=== PATIENT | female | born 1930 | race Caucasian/White ===

== ENCOUNTER 2016-05-02 16:55 | Emergency (ER) | payer OTHER ==
[~2016-05-02] VITALS: Ht 154.9 cm; Wt 63.0 kg
[~2016-05-02 16:55] MED LIST: BRIM0.2S4 LEFT EYE; BUME0.5T PO; CIPR-9 PO; DIGO0.12 PO; DILT300C PO; DORZ2SOL7 LEFT EYE; LOSA25TA PO; POTA10TA8 PO; PRED1SUS LEFT EYE; PROB500T8 PO; XARE20TA PO
[2016-05-02 17:10] VITALS: BP 152/60; PULSE 71; RESP 18; TEMP 98.3; O2SAT 98
--- NOTE | 2016-05-02 17:35 | PD ---
HPI Chief Complaint: Abdominal Pain Time Seen by Provider: 17:22 Travel History International Travel<30 days: No Contact w/Intl Traveler<30days: No Traveled to known affect area: No History of Present Illness HPI The patient was seen and examined in the presence of the nurse. This patient has intermittent spells of abdominal cramping for one month. She is currently pain-free. No vomiting or rigidity does have alternating spells of diarrhea and constipation. No bleeding. She was seen here week ago for the exact same problem and had extensive workup that was negative. She does have a GI physician she sees regularly but didn't mention this to them. Symptoms severity is mild to moderate PFSH Past Medical History Hx Anticoagulant Therapy: Yes Asthma: Yes ( CHILD) Atrial Fibrillation: Yes Heart Rhythm Problems: Yes (A. FIB) Cancer: No Cardiovascular Problems: Yes (AFIB) High Cholesterol: Yes Congestive Heart Failure: No COPD: No Diminished Hearing: No Diverticulitis: Yes Endocrine: No Gastrointestinal Disorders: Yes (HX PANCREATITIS 1989) Genitourinary: Yes (BLADDER INFECTION, UTIs) Hypertension: Yes Implanted Vascular Access Dvce: Yes Neurologic: No Psychiatric: No Respiratory: Yes Immunizations Current: No Pancreatitis: Yes ?: Not Menopausal: Yes : 3 Para: 2 Miscarriage: 1 Past Surgical History Abdominal Surgery: Yes (DIVERTICULITIS; CHOLECYSTECTOMY) Body Medical Devices: knee replacement bilateral Cholecystectomy: Yes Genitourinary Surgery: Yes (FLOYD [facility] ) Gynecologic Surgery: Yes ([facility]) Hysterectomy: Yes Joint Replacement: Yes (bilat KNEE) Tonsillectomy: Yes Other Surgery: Yes (LEFT LOWER LEG SKIN GRAFT 2015) Social History Alcohol Use: No Tobacco Use: No Substance Use: No Allergies-Medications (Allergen,Severity, Reaction): Coded Allergies: Acarides (Mites) (Verified Allergy, Severe, 05/02/16) Beef (Verified Allergy, Severe, 05/02/16) Cultivated Oat Pollen (Verified Allergy, Severe, 05/02/16) Grass (Verified Allergy, Severe, 05/02/16) Milk (Verified Allergy, Severe, Sneezing, 05/02/16) Molds and Smuts (Verified Allergy, Severe, 05/02/16) Morphine (Verified Allergy, Severe, CAN NOT TAKE HX PANCREATITIS, 05/02/16) Reported Meds & Prescriptions Reported Meds & Active Scripts Active Cipro (Ciprofloxacin HCl) 500 Mg Tab 500 Mg PO BID 7 Days Reported Xarelto (Rivaroxaban) 20 Mg Tab 20 Mg PO DAILY Probenecid 500 Mg Tab 500 Mg PO DAILY Pred Forte Opth Drops (Prednisolone Acetate Opth Drops) 1% Susp 1 Drop LEFT EYE DAILY Potassium Chloride CR (Potassium Chloride) 10 Meq Tab 10 Meq PO DAILY Losartan (Losartan Potassium) 25 Mg Tab 25 Mg PO DAILY Diltiazem HCl ER (Diltiazem HCl Coated Beads) 300 Mg Cap 300 Mg PO DAILY Digoxin 0.125 Mg Tab 0.125 Mg PO HS Cosopt Opth Drops (Dorzolamide-Timolol Opth Drops) 22.3-6.8 Mg/Ml Soln 1 Drop LEFT EYE BID Bumetanide 0.5 Mg Tab 0.5 Mg PO DAILY Brimonidine Opth Drops (Brimonidine Tartrate) 0.2% Soln 1 Drop LEFT EYE BID Review of Systems General / Constitutional: No: Fever Eyes: No: Visual changes HENT: No: Headaches Cardiovascular: No: Chest Pain or Discomfort Respiratory: No: Shortness of Breath Gastrointestinal: Positive: Diarrhea, Abdominal Pain, Constipation Genitourinary: No: Dysuria Musculoskeletal: No: Pain Skin: No Rash Neurologic: No: Weakness Psychiatric: No: Depression Endocrine: No: Polydipsia Hematologic/Lymphatic: No: Easy Bruising Physical Exam Narrative GENERAL: Well-nourished, well-developed patient in no apparent distress. SKIN: Warm and dry. HEAD: Atraumatic. Normocephalic. EYES: Pupils equal and round. No scleral icterus. No injection or drainage. ENT: No nasal bleeding or discharge. Mucous membranes pink and moist. NECK: Trachea midline. No JVD. CARDIOVASCULAR: Regular rate and rhythm. No murmur appreciated. RESPIRATORY: No accessory muscle use. Clear to auscultation. Breath sounds equal bilaterally. GASTROINTESTINAL: Abdomen soft, non-tender, nondistended. Hepatic and splenic margins not palpable. MUSCULOSKELETAL: No obvious deformities. No clubbing. No cyanosis. No edema. NEUROLOGICAL: Awake and alert. No obvious cranial nerve deficits. Motor grossly within normal limits. Normal speech. PSYCHIATRIC: Appropriate mood and affect; insight and judgment normal. Data Data Last Documented VS Vital Signs Date Time Temp Pulse Resp B/P Pulse Ox O2 Delivery O2 Flow Rate FiO2 05/02/16 17:10 98.3 71 18 152/60 98 MDM Medical Decision Making Medical Screen Exam Complete: Yes Emergency Medical Condition: Yes Medical Record Reviewed: Yes Differential Diagnosis Irritable bowel syndrome, gastroparesis, colitis Narrative Course I have reviewed the patient's electronic medical record. Reviewed the CT and labs from a week ago Since workup was negative other than UTI which she completed antibiotic for and has no urinary symptoms I don't feel repeating that extensive workup is going to help the process here today. She is currently asymptomatic with soft benign nontender abdomen Recommend she follow up with her GI physician Diagnosis Primary Impression: Abdominal pain Qualified Code: R10.30 - Lower abdominal pain Additional Instructions: The patient was advised to follow up with their GI physician and return if they worsen. Med/Other Pt SpecificInfo: Other Disposition: 01 DISCHARGE HOME Condition: Stable Bahman Weston MD May 02, 2016 17:35
== END 2016-05-02 17:55 | disposition home or self-care (01) ==
LOC: PHED 16:55
DX: R10.9 Unspecified abdominal pain (principal); I48.91 Unspecified atrial fibrillation; E78.00 Pure hypercholesterolemia, unspecified; I10 Essential (primary) hypertension; Z79.01 Long term (current) use of anticoagulants
CPT/HCPCS: 99283

== ENCOUNTER 2016-07-21 16:14 | Emergency (ER) | payer OTHER ==
[~2016-07-21] VITALS: Ht 154.9 cm; Wt 60.6 kg
[~2016-07-21 16:14] MED LIST changes: -CIPR-9 PO
[2016-07-21 16:32] VITALS: BP 163/93; PULSE 83; RESP 18; TEMP 98.8; O2SAT 98
[2016-07-21 16:34] LABS: BLOOD, URINE TRACE (NEG); GLUCOSE,URINE NEG (NEG); KETONE, URINE NEG (NEG); NITRITE,URINE NEG (NEG); PH, URINE 5.5 (5.0-8.5)
[2016-07-21 16:55] LABS: METHOD OF COLLECTION CLEAN CATCH; URINE COLOR STRAW (YELLW/STRAW); WBC, URINE 100-200 /hpf (0-5)
[2016-07-21 16:56] LABS: COMMENT (UR) CULTURE INDICATED; CULTURE IF INDICATED CULTURE INDICATED; SQUAMOUS EPITHELIAL CELL URINE 0-5 /hpf (0-5); TRANSITIONAL EPI CELLS, URINE 0-5 /hpf
--- NOTE | 2016-07-21 17:39 | PD ---
HPI Chief Complaint: Abdominal Pain Time Seen by Provider: 17:39 (Sophia Morin) Time Seen by Provider: 17:39 (Julio Ro MD) Travel History International Travel<30 days: No Contact w/Intl Traveler<30days: No Traveled to known affect area: No (Sophia Morin) International Travel<30 days: No Contact w/Intl Traveler<30days: No Traveled to known affect area: No (Julio Ro MD) History of Present Illness HPI This 86-year-old female says she been having lower abdominal pain for the past week. She is gone to her doctor and was given a course of sulfa. This did not seem to help so then he was changed to doxycycline. This is also not helping. She is having pain across her lower abdomen. She's had diminished appetite area she has a history of frequent urinary tract infections. She also had perforated diverticulitis of the sigmoid in 1971 and had surgery for that. She is also a cholecystectomy, hysterectomy, cystocele and rectocele. (Julio Ro MD) [facility] Past Medical History Hx Anticoagulant Therapy: Yes Asthma: Yes ( CHILD) Atrial Fibrillation: Yes Heart Rhythm Problems: Yes (A. FIB) Cancer: No Cardiovascular Problems: Yes (AFIB) High Cholesterol: Yes Congestive Heart Failure: No COPD: No Diminished Hearing: No Diverticulitis: Yes Endocrine: No Gastrointestinal Disorders: Yes (HX PANCREATITIS 1989) Genitourinary: Yes (BLADDER INFECTION, UTIs) Hypertension: Yes Implanted Vascular Access Dvce: Yes Neurologic: No Psychiatric: No Respiratory: Yes Immunizations Current: No Pancreatitis: Yes Influenza Vaccination: Yes ?: Not Menopausal: Yes : 3 Para: 2 Miscarriage: 1 (Sophia Morin) Past Surgical History Abdominal Surgery: Yes (DIVERTICULITIS; CHOLECYSTECTOMY) Body Medical Devices: knee replacement bilateral Cholecystectomy: Yes Genitourinary Surgery: Yes (FLOYD [facility] ) Gynecologic Surgery: Yes ([facility]) Hysterectomy: Yes Joint Replacement: Yes (bilat KNEE) Tonsillectomy: Yes Other Surgery: Yes (LEFT LOWER LEG SKIN GRAFT 2015) (Sophia Morin) Social History Alcohol Use: No Tobacco Use: No Substance Use: No (Sophia Morin) Allergies-Medications (Allergen,Severity, Reaction): Coded Allergies: Acarides (Mites) (Verified Allergy, Severe, 05/02/16) Beef (Verified Allergy, Severe, 05/02/16) Cultivated Oat Pollen (Verified Allergy, Severe, 05/02/16) Grass (Verified Allergy, Severe, 05/02/16) Milk (Verified Allergy, Severe, Sneezing, 05/02/16) Molds and Smuts (Verified Allergy, Severe, 05/02/16) Morphine (Verified Allergy, Severe, CAN NOT TAKE HX PANCREATITIS, 05/02/16) Reported Meds & Prescriptions Reported Meds & Active Scripts Active Macrobid (Nitrofurantoin Monoh/Nitrofur Macro) 100 Mg Cap 100 Mg PO BID Reported Xarelto (Rivaroxaban) 20 Mg Tab 20 Mg PO DAILY Probenecid 500 Mg Tab 500 Mg PO DAILY Pred Forte Opth Drops (Prednisolone Acetate Opth Drops) 1% Susp 1 Drop LEFT EYE DAILY Potassium Chloride CR (Potassium Chloride) 10 Meq Tab 10 Meq PO DAILY Losartan (Losartan Potassium) 25 Mg Tab 25 Mg PO DAILY Diltiazem HCl ER (Diltiazem HCl Coated Beads) 300 Mg Cap 300 Mg PO DAILY Digoxin 0.125 Mg Tab 0.125 Mg PO HS Cosopt Opth Drops (Dorzolamide-Timolol Opth Drops) 22.3-6.8 Mg/Ml Soln 1 Drop LEFT EYE BID Bumetanide 0.5 Mg Tab 0.5 Mg PO DAILY Brimonidine Opth Drops (Brimonidine Tartrate) 0.2% Soln 1 Drop LEFT EYE BID (Julio Ro MD) Review of Systems General / Constitutional: No: Fever, Chills Eyes: No: Diploplia, Blurred Vision HENT: No: Headaches, Vertigo Cardiovascular: No: Chest Pain or Discomfort, Palpitations Respiratory: No: Cough, Shortness of Breath Gastrointestinal: No: Vomiting, Diarrhea Genitourinary: Positive: Pelvic Pain Musculoskeletal: No: Myalgias Skin: No Rash (Julio Ro MD) Physical Exam Narrative GENERAL: Well-developed female SKIN: Focused skin assessment warm/dry. HEAD: Atraumatic. Normocephalic. EYES: Pupils equal and round. No scleral icterus. No injection or drainage. ENT: No nasal bleeding or discharge. Mucous membranes pink and moist. NECK: Trachea midline. No JVD. CARDIOVASCULAR: Irregular rate and rhythm. No murmur appreciated. RESPIRATORY: No accessory muscle use. Clear to auscultation. Breath sounds equal bilaterally. GASTROINTESTINAL: Abdomen soft, there is some lower abdominal tenderness without guarding or rigidity, nondistended. Hepatic and splenic margins not palpable. MUSCULOSKELETAL: No obvious deformities. No clubbing. No cyanosis. No edema. NEUROLOGICAL: Awake and alert. No obvious cranial nerve deficits. Motor grossly within normal limits. Normal speech. PSYCHIATRIC: Appropriate mood and affect; insight and judgment normal. (Julio Ro MD) Data Data Last Documented VS Vital Signs Date Time Temp Pulse Resp B/P Pulse Ox O2 Delivery O2 Flow Rate FiO2 07/21/16 16:32 98.8 83 18 163/93 98 Room Air (Julio Ro MD) Orders Urinalysis - C+S If Indicated (07/21/16 16:25) Urine Culture (07/21/16 16:30) Complete Blood Count With Diff (07/21/16 17:41) Basic Metabolic Panel (Bmp) (07/21/16 17:41) Ct Abd/Pel W Iv Contrast(Rout) (07/21/16 17:41) Sodium Chlor 0.9% 1000 Ml Inj (Ns 1000 M (07/21/16 17:45) Ceftriaxone Inj (Rocephin Inj) (07/21/16 18:45) Iohexol 350 Inj (Omnipaque 350 Inj) (07/21/16 19:25) (Julio Ro MD) Labs Laboratory Tests Test 07/21/16 07/21/16 16:30 18:05 Urine Collection Type CLEAN CATCH Urine Color STRAW Urine Turbidity MOD Urine pH 5.5 Urine Specific Hanson 1.005 Urine Protein NEG mg/dL Urine Glucose (UA) NEG mg/dL Urine Ketones NEG mg/dL Urine Occult Blood TRACE Urine Nitrite NEG Urine Bilirubin NEG Urine Leukocyte Esterase LARGE Urine RBC 10-14 /hpf Urine WBC 100-200 /hpf Urine WBC Clumps MANY Urine Squamous Epithelial 0-5 /hpf Cells Urine Transitional Epithelial 0-5 /hpf Cells Microscopic Urinalysis Comment CULTURE INDICATED Urine Collection Time 16:30 White Blood Count 7.7 TH/MM3 Red Blood Count 3.74 MIL/MM3 Hemoglobin 12.9 GM/DL Hematocrit 37.4 % Mean Corpuscular Volume 100.2 FL Mean Corpuscular Hemoglobin 34.4 PG Mean Corpuscular Hemoglobin 34.4 % Concent Red Cell Distribution Width 14.7 % Platelet Count 284 TH/MM3 Mean Platelet Volume 8.2 FL Neutrophils (%) (Auto) 61.3 % Lymphocytes (%) (Auto) 27.4 % Monocytes (%) (Auto) 9.1 % Eosinophils (%) (Auto) 1.5 % Basophils (%) (Auto) 0.7 % Neutrophils # (Auto) 4.7 TH/MM3 Lymphocytes # (Auto) 2.1 TH/MM3 Monocytes # (Auto) 0.7 TH/MM3 Eosinophils # (Auto) 0.1 TH/MM3 Basophils # (Auto) 0.1 TH/MM3 CBC Comment DIFF FINAL Differential Comment Sodium Level 134 MEQ/L Potassium Level 4.5 MEQ/L Chloride Level 101 MEQ/L Carbon Dioxide Level 23.7 MEQ/L Anion Gap 9 MEQ/L Blood Urea Nitrogen 14 MG/DL Creatinine 0.88 MG/DL Estimat Glomerular Filtration 61 ML/MIN Rate Random Glucose 104 MG/DL Calcium Level 9.3 MG/DL (Julio Ro MD) [facility] Medical Decision Making Medical Screen Exam Complete: Yes Emergency Medical Condition: Yes Medical Record Reviewed: Yes Differential Diagnosis Differential includes UTI, diverticulitis Narrative Course White count is normal. Urine does show significant urinary tract infection. CT scan was done and is negative does not show any diverticulitis. Incidental findings of increasing compression of the vertebrae was seen. Patient has a UTI. I'm going to prescribe Macrodantin. When she was here last for UTI organisms that was sensitive to Macrodantin. Obtained a sample today 2 cultures which will need to be checked. She'll be released with Macrodantin 100 twice daily. She has been given Rocephin intravenous (Julio Ro MD) Diagnosis Primary Impression: Urinary tract infection Scripts Nitrofurantoin Monohydrate Macrocrystals (Macrobid)100 Mg [id number] Mg PO BID #20 CAP Ref 0 Prov:Julio Ro MD 07/21/16 Disposition: 01 DISCHARGE HOME Condition: Stable Sophia Morin Jul 21, 2016 17:39 Julio Ro MD Jul 21, 2016 17:48
[2016-07-21] MEDS ORDERED: SODIUM CHLOR 0.9% 1000 ML INJ 1,000 ML IV SCH (17:45)
[2016-07-21 18:16] LABS: AUTOMATED NEUTROPHIL # 4.7 TH/MM3 (1.8-7.7); BASOPHIL # 0.1 TH/MM3 (0-0.2); BASOPHIL % 0.7 % (0.0-2.0); EOSINOPHIL # 0.1 TH/MM3 (0-0.4); EOSINOPHIL % 1.5 % (0.0-4.0); HEMATOCRIT 37.4 % (35.0-46.0); HEMO FLAGS DIFF FINAL; LYMPH % 27.4 % (9.0-44.0); LYMPHOCYTE # 2.1 TH/MM3 (1.0-4.8); MEAN CELL VOLUME 100.2 FL (80.0-100.0); MEAN CORPUSCULAR HEMOGLOBIN 34.4 PG (27.0-34.0); MEAN CORPUSCULAR HGB CONC 34.4 % (32.0-36.0); MONO % 9.1 % (0.0-8.0); NEUT % 61.3 % (16.0-70.0); PLATELET COUNT 284 TH/MM3 (150-450); RED BLOOD COUNT 3.74 MIL/MM3 (4.00-5.30); RED CELL DISTRIBUTION WIDTH 14.7 % (11.6-17.2); WHITE BLOOD COUNT 7.7 TH/MM3 (4.0-11.0)
[2016-07-21 18:30] LABS: BICARBONATE 23.7 MEQ/L (21.0-32.0)
[2016-07-21 18:34] LABS: POTASSIUM 4.5 MEQ/L (3.5-5.1)
[2016-07-21] MEDS ORDERED: cefTRIAXone INJ 1,000 MG in SODIUM CHLORIDE 0.9% INJ 100 ML IV ONE (18:45)
[2016-07-21] MEDS ORDERED: IOHEXOL 350 MG/ML 10 ML VIAL (for RAD DIAG) IV ONE (19:25)
--- NOTE | 2016-07-21 19:46 | RADHPO ---
EXAM DATE/TIME: 07/21/2016 19:08 [place] COMPARISON: CT ABDOMEN & PELVIS W CONTRAST, June 27, 2015, 13:18. INDICATIONS : Bilateral lower quadrant pain. Evaluate for diverticulitis. IV CONTRAST: 100 cc Omnipaque 350 (iohexol) IV ORAL CONTRAST: No oral contrast ingested. RADIATION DOSE: 7.15 CTDIvol (mGy) MEDICAL HISTORY : Hypertension. Pancreatitis. Diverticulitis. SURGICAL HISTORY : Cholecystectomy. Hysterectomy. Colon resection. Cystocele. Rectocele. ENCOUNTER: Initial ACUITY: 2 weeks PAIN SCALE: 9/10 LOCATION: Bilateral lower quadrant TECHNIQUE: Volumetric scanning of the abdomen and pelvis was performed. Using automated exposure control and ad justment of the mA and/or kV according to patient size, radiation dose was kept as low as reasonably achievable to obtain optimal diagnostic quality images. FINDINGS: The heart is markedly enlarged. The visualized lung bases are clear. Minimal chronic central intrah epatic and extrahepatic biliary ductal dilatation is noted. The gallbladder has been resected. Ther e is no focal hepatic mass. The spleen is normal. Punctate calcifications are noted throughout the pancreas consistent with chronic calcific pancreatitis. No acute pancreas is noted. The adrenal gla nds are noted bilaterally. The kidneys enhance briskly and demonstrate no evidence of focal mass or hydronephrosis. The abdominal aorta is calcified and is tortuous but it is not aneurysmally dilated. The inferior vena cava is normal. There is no paraaortic, retroperitoneal or mesenteric lymphadenop athy. Uncomplicated colonic diverticulosis is noted. No acute diverticulitis is noted. The urinary bladder is distended but demonstrates no wall thickening or mass. The uterus has been resected. No ascites is noted. No pelvic lymphadenopathy is noted. There is a mild compression deformity involvi ng L2 which was not present in June of 2015. The more severe compression deformities involving T10 and T12 are chronic and unchanged compared to the previous examination in June of 2015. Degenerativ e changes and scoliosis of the thoracolumbar spine are noted. CONCLUSION: 1. Mild compression deformity involving L2 which was not present in June of 2015. 2. Chronic more severe compression deformities involving T10 and T12 which are stable. 3. Marked cardiomegaly. 4. Uncomplicated colonic diverticulosis. 5. Minimal chronic central intrahepatic and extrahepatic biliary ductal dilatation which is stable. 6. Chronic calcific pancreatitis. 7. Degenerative changes and scoliosis of the thoracolumbar spine. Edison Weber MD on July 21, 2016 at 19:30 Board Certified Radiologist. This report was verified electronically.
[2016-07-21] MEDS ORDERED: MACR100C2 PO (19:47)
[2016-07-21 20:16] VITALS: BP 130/71
== END 2016-07-21 20:14 | disposition home or self-care (01) ==
LOC: PHEFT 16:14
DX: N39.0 Urinary tract infection, site not specified (principal); B96.89 Other specified bacterial agents as the cause of diseases classified elsewhere
CPT/HCPCS: 74177; 80048; 81001; 85025; 87077; 87086; 87186; 96361; 96365; 99284; J0696; J7030; Q9967

== ENCOUNTER 2016-07-24 21:20 | Observation (INO) | payer OTHER ==
[~2016-07-24] VITALS: Ht 154.9 cm; Wt 60.3 kg
[~2016-07-24 21:20] MED LIST changes: +MACR100C2 PO
[2016-07-24 21:49] VITALS: BP 121/77; PULSE 88; RESP 18; TEMP 97.7; O2SAT 96
[2016-07-24] MEDS ORDERED: SODIUM CHLORIDE 0.9% FLUSH 10 ML FLUSH IV FLUSH PRN (22:45)
--- NOTE | 2016-07-24 22:53 | PD ---
HPI Chief Complaint: Abdominal Pain Time Seen by Provider: 22:48 Travel History International Travel<30 days: No Contact w/Intl Traveler<30days: No Traveled to known affect area: No History of Present Illness HPI 86-year-old female with history of multiple medical issues, chronic pancreatitis , multiple abdominal surgeries, seen 3 days ago for UTI, presents to the ER today because she states she has been feeling worse, has had increased abdominal pain today which she rates it a 10 out of 10, nauseous, and states that she had been called by hospital to change her antibiotic to Cipro. However , she has not had a chance to change yet. She denies any fevers, vomiting, or other symptoms. She denies any exacerbating or alleviating factors. Modifying Factors: None Associated Signs & Symptoms: Nausea, worsening abdominal pain Risk Factors: Recent UTI, persistent to previous antibiotic PFSH Past Medical History Hx Anticoagulant Therapy: Yes (xarelto) Asthma: Yes ( CHILD) Atrial Fibrillation: Yes Heart Rhythm Problems: Yes (A. FIB) Cancer: No Cardiovascular Problems: Yes High Cholesterol: Yes Congestive Heart Failure: No COPD: No Diminished Hearing: No Diverticulitis: Yes Endocrine: No Gastrointestinal Disorders: Yes (HX PANCREATITIS 1989) Genitourinary: Yes (BLADDER INFECTION, UTIs) Hypertension: Yes Implanted Vascular Access Dvce: Yes Neurologic: No Psychiatric: No Respiratory: Yes Immunizations Current: No Pancreatitis: Yes Menopausal: Yes : 3 Para: 2 Miscarriage: 1 Past Surgical History Abdominal Surgery: Yes (DIVERTICULITIS; CHOLECYSTECTOMY) Body Medical Devices: knee replacement bilateral Cholecystectomy: Yes Genitourinary Surgery: Yes ([facility] ) Gynecologic Surgery: Yes ([facility]) Hysterectomy: Yes Joint Replacement: Yes (bilat KNEE) Tonsillectomy: Yes Other Surgery: Yes (LEFT LOWER LEG SKIN GRAFT 2015) Social History Alcohol Use: No Tobacco Use: No Substance Use: No Allergies-Medications (Allergen,Severity, Reaction): Coded Allergies: Acarides (Mites) (Verified Allergy, Severe, 07/24/16) Beef (Verified Allergy, Severe, 07/24/16) Cultivated Oat Pollen (Verified Allergy, Severe, 07/24/16) Grass (Verified Allergy, Severe, 07/24/16) Milk (Verified Allergy, Severe, Sneezing, 07/24/16) Molds and Smuts (Verified Allergy, Severe, 07/24/16) Morphine (Verified Allergy, Severe, CAN NOT TAKE HX PANCREATITIS, 07/24/16) Reported Meds & Prescriptions Reported Meds & Active Scripts Active Macrobid (Nitrofurantoin Monoh/Nitrofur Macro) 100 Mg Cap 100 Mg PO BID Reported Xarelto (Rivaroxaban) 20 Mg Tab 20 Mg PO DAILY Probenecid 500 Mg Tab 500 Mg PO DAILY Pred Forte Opth Drops (Prednisolone Acetate Opth Drops) 1% Susp 1 Drop LEFT EYE DAILY Potassium Chloride CR (Potassium Chloride) 10 Meq Tab 10 Meq PO DAILY Losartan (Losartan Potassium) 25 Mg Tab 25 Mg PO DAILY Diltiazem HCl ER (Diltiazem HCl Coated Beads) 300 Mg Cap 300 Mg PO DAILY Digoxin 0.125 Mg Tab 0.125 Mg PO HS Cosopt Opth Drops (Dorzolamide-Timolol Opth Drops) 22.3-6.8 Mg/Ml Soln 1 Drop LEFT EYE BID Bumetanide 0.5 Mg Tab 0.5 Mg PO DAILY Brimonidine Opth Drops (Brimonidine Tartrate) 0.2% Soln 1 Drop LEFT EYE BID Review of Systems Except as stated in HPI: all other systems reviewed are Neg Physical Exam Narrative GENERAL: Pleasant elderly white female patient who is currently not in acute distress. Awake and oriented 3. SKIN: Focused skin assessment warm/dry. HEAD: Atraumatic. Normocephalic. EYES: Pupils equal and round. No scleral icterus. No injection or drainage. ENT: No nasal bleeding or discharge. Mucous membranes pink and moist. NECK: Trachea midline. No JVD. CARDIOVASCULAR: Irregularly irregular. No murmur appreciated. RESPIRATORY: No accessory muscle use. Clear to auscultation. Breath sounds equal bilaterally. GASTROINTESTINAL: Abdomen soft, lower abdominal tenderness without guarding or rebound and mild epigastric tenderness, nondistended. Hepatic and splenic margins not palpable. MUSCULOSKELETAL: No obvious deformities. No clubbing. No cyanosis. No edema. NEUROLOGICAL: Awake and alert. No obvious cranial nerve deficits. Motor grossly within normal limits. Normal speech. PSYCHIATRIC: Appropriate mood and affect; insight and judgment normal. Data Data Last Documented VS Vital Signs Date Time Temp Pulse Resp B/P Pulse Ox O2 Delivery O2 Flow Rate FiO2 07/24/16 22:46 Room Air 07/24/16 21:49 97.7 88 18 121/77 96 Orders Complete Blood Count With Diff (07/24/16 22:39) Comprehensive Metabolic Panel (07/24/16 22:39) Lipase (07/24/16 22:39) Urinalysis - C+S If Indicated (07/24/16 22:39) Iv Access Insert/Monitor (07/24/16 22:39) Ecg Monitoring (07/24/16 22:39) Oximetry (07/24/16 22:39) Sodium Chloride 0.9% Flush (Ns Flush) (07/24/16 22:45) Electrocardiogram (07/24/16 ) Ct Abd/Pel W Iv Contrast(Rout) (07/24/16 22:48) Hydromorphone Pf Inj (Dilaudid Pf Inj) (07/24/16 23:00) Ondansetron Inj (Zofran Inj) (07/24/16 23:00) Urine Culture (07/24/16 22:00) Iohexol 350 Inj (Omnipaque 350 Inj) (07/25/16 00:48) Admit Order (Ed Use Only) (07/25/16 01:30) Blood Culture (07/25/16 01:32) Lactic Acid Sepsis Protocol (07/25/16 01:32) Piperacil-Tazo 3.375 Gm Premix (Zosyn 3. (07/25/16 01:45) Ns (Bolus) Inj (07/25/16 01:45) Labs Laboratory Tests Test 07/24/16 07/24/16 22:00 22:59 Urine Color YELLOW Urine Turbidity CLEAR Urine pH 5.5 Urine Specific [place] 1.008 Urine Protein NEG mg/dL Urine Glucose (UA) NEG mg/dL Urine Ketones NEG mg/dL Urine Occult Blood NEG Urine Nitrite NEG Urine Bilirubin NEG Urine Leukocyte Esterase NEG Urine WBC 0-2 /hpf Urine WBC Clumps OCC Urine Squamous Epithelial 0-5 /hpf Cells Urine Hyaline Casts 10-14 /lpf Urine Mucus OCC /lpf Microscopic Urinalysis Comment CULTURE INDICATED White Blood Count 10.8 TH/MM3 Red Blood Count 3.94 MIL/MM3 Hemoglobin 13.1 GM/DL Hematocrit 39.7 % Mean Corpuscular Volume 100.6 FL Mean Corpuscular Hemoglobin 33.2 PG Mean Corpuscular Hemoglobin 33.0 % Concent Red Cell Distribution Width 14.6 % Platelet Count 301 TH/MM3 Mean Platelet Volume 8.3 FL Neutrophils (%) (Auto) 72.7 % Lymphocytes (%) (Auto) 17.5 % Monocytes (%) (Auto) 6.8 % Eosinophils (%) (Auto) 0.6 % Basophils (%) (Auto) 2.4 % Neutrophils # (Auto) 7.8 TH/MM3 Lymphocytes # (Auto) 1.9 TH/MM3 Monocytes # (Auto) 0.7 TH/MM3 Eosinophils # (Auto) 0.1 TH/MM3 Basophils # (Auto) 0.3 TH/MM3 CBC Comment DIFF FINAL Differential Comment Sodium Level 133 MEQ/L Potassium Level 4.3 MEQ/L Chloride Level 97 MEQ/L Carbon Dioxide Level 23.9 MEQ/L Anion Gap 12 MEQ/L Blood Urea Nitrogen 22 MG/DL Creatinine 1.00 MG/DL Estimat Glomerular Filtration 52 ML/MIN Rate Random Glucose 130 MG/DL Calcium Level 9.8 MG/DL Total Bilirubin 0.4 MG/DL Aspartate Amino Transf 25 U/L (AST/SGOT) Alanine Aminotransferase 24 U/L (ALT/SGPT) Alkaline Phosphatase 87 U/L Total Protein 7.8 GM/DL Albumin 3.6 GM/DL Lipase 248 U/L MDM Medical Decision Making Medical Screen Exam Complete: Yes Emergency Medical Condition: Yes Medical Record Reviewed: Yes Interpretation(s) Laboratory Tests Test 07/24/16 07/24/16 22:00 22:59 Urine WBC Clumps OCC (NONE) Urine Hyaline Casts 10-14 /lpf (RARE) Red Blood Count 3.94 MIL/MM3 (4.00-5.30) Mean Corpuscular Volume 100.6 FL (80.0-100.0) Neutrophils (%) (Auto) 72.7 % (16.0-70.0) Basophils (%) (Auto) 2.4 % (0.0-2.0) Neutrophils # (Auto) 7.8 TH/MM3 (1.8-7.7) Basophils # (Auto) 0.3 TH/MM3 (0-0.2) Sodium Level 133 MEQ/L (136-145) Chloride Level 97 MEQ/L (98-107) Blood Urea Nitrogen 22 MG/DL (7-18) Estimat Glomerular Filtration 52 ML/MIN (>89) Rate Random Glucose 130 MG/DL (74-106) Last 24 hours Impressions Abdomen/Pelvis CT 07/24/16 2248 Signed Impressions: Service Date/Time: Monday, July 25, 2016 00:19 - CONCLUSION: 1. Mildly dilated small bowel without obstructing mass or lesion. 2. Cardiomegaly. 3. Colonic diverticulosis. 4. Stable mild intrahepatic connection hepatic ductal dilatation possibly secondary to capacitance affect from prior cholecystectomy. 5. Chronic pancreatitis. 6. Small hiatal hernia. Martin Arteaga Jr., MD Differential Diagnosis Worsening abdominal painsresistant UTI versus pyelonephritis versus ileus versus constipation versus acute obstruction Narrative Course CAT scan shows dilated small bowel questionable for ileus. IV antibiotics were started after cultures were done for her UTI. At this point, my plan would be to admit the patient as an observation for ileus. Case was discussed with Dr. Islas for admission. Diagnosis Primary Impression: Urinary tract infection Additional Impression: Ileus Admitting Information Admitting Physician Requests: Admit Ady Bonilla MD Jul 24, 2016 22:53
[2016-07-24] MEDS ORDERED: HYDROmorphone HCL PF 1 MG/ML VIAL IV PUSH ONE (23:00)
[2016-07-24] MEDS ORDERED: ONDANSETRON HCL 4 MG/2 ML VIAL IV PUSH ONE (23:00)
[2016-07-24 23:08] LABS: BLOOD, URINE NEG (NEG); GLUCOSE,URINE NEG (NEG); KETONE, URINE NEG (NEG); NITRITE,URINE NEG (NEG); PH, URINE 5.5 (5.0-8.5)
[2016-07-24 23:09] LABS: AUTOMATED NEUTROPHIL # 7.8 TH/MM3 (1.8-7.7); BASOPHIL # 0.3 TH/MM3 (0-0.2); BASOPHIL % 2.4 % (0.0-2.0); EOSINOPHIL # 0.1 TH/MM3 (0-0.4); EOSINOPHIL % 0.6 % (0.0-4.0); HEMATOCRIT 39.7 % (35.0-46.0); HEMO FLAGS DIFF FINAL; LYMPH % 17.5 % (9.0-44.0); LYMPHOCYTE # 1.9 TH/MM3 (1.0-4.8); MEAN CELL VOLUME 100.6 FL (80.0-100.0); MEAN CORPUSCULAR HEMOGLOBIN 33.2 PG (27.0-34.0); MONO % 6.8 % (0.0-8.0); NEUT % 72.7 % (16.0-70.0); PLATELET COUNT 301 TH/MM3 (150-450); RED BLOOD COUNT 3.94 MIL/MM3 (4.00-5.30); RED CELL DISTRIBUTION WIDTH 14.6 % (11.6-17.2); WHITE BLOOD COUNT 10.8 TH/MM3 (4.0-11.0)
[2016-07-24 23:13] LABS: URINE COLOR YELLOW (YELLW/STRAW)
[2016-07-24 23:14] LABS: MUCUS URINE OCC /lpf (OCC); SQUAMOUS EPITHELIAL CELL URINE 0-5 /hpf (0-5); WBC, URINE 0-2 /hpf (0-5)
[2016-07-24 23:15] LABS: COMMENT (UR) CULTURE INDICATED; CULTURE IF INDICATED CULTURE INDICATED
[2016-07-24 23:29] LABS: CHLORIDE 97 MEQ/L (98-107); SODIUM (NA) 133 MEQ/L (136-145)
[2016-07-24 23:33] LABS: ANION GAP 12 MEQ/L (5-15); BICARBONATE 23.9 MEQ/L (21.0-32.0); BLOOD UREA NITROGEN 22 MG/DL (7-18)
[2016-07-24 23:36] LABS: ALT (GPT) 24 U/L (10-53); AST (GOT) 25 U/L (15-37); GLOMERULAR FILTRATION RATE 52 ML/MIN (>89)
[2016-07-24 23:38] LABS: TOTAL BILIRUBIN ADULT 0.4 MG/DL (0.2-1.0)
[2016-07-24 23:39] LABS: ALKALINE PHOSPHATASE 87 U/L (45-117)
[2016-07-24 23:45] VITALS: BP 140/78; PULSE 66; RESP 17; O2SAT 95
[2016-07-24 23:49] LABS: POTASSIUM 4.3 MEQ/L (3.5-5.1)
[2016-07-25] MEDS ORDERED: IOHEXOL 350 MG/ML 10 ML VIAL (for RAD DIAG) IV ONE (00:48)
[2016-07-25 01:00] VITALS: BP 117/70; PULSE 62; RESP 18; O2SAT 94
--- NOTE | 2016-07-25 01:01 | RADHPO ---
EXAM DATE/TIME: 07/25/2016 00:19 [facility] COMPARISON: CT ABDOMEN & PELVIS W CONTRAST, June 27, 2015, 13:18. CT ABDOMEN & PELVIS W CONTRAST, July 21 7, 19:08. INDICATIONS : Epigastric pain with nausea. IV CONTRAST: 96 cc Omnipaque 350 (iohexol) IV ORAL CONTRAST: No oral contrast ingested. RADIATION DOSE: 6.82 CTDIvol (mGy) MEDICAL HISTORY : Rheumatoid arthritis. Pancreatitis. Diverticulitis.Hypertension. SURGICAL HISTORY : Cholecystectomy. Hysterectomy. ENCOUNTER: Initial ACUITY: 1 day PAIN SCALE: 8/10 LOCATION: Abdomen. TECHNIQUE: Volumetric scanning of the abdomen and pelvis was performed. Using automated exposure control and ad justment of the mA and/or kV according to patient size, radiation dose was kept as low as reasonably achievable to obtain optimal diagnostic quality images. FINDINGS: LOWER LUNGS: The heart is moderately enlarged without pericardial effusion. This is unchanged. Small hiatal hernia noted. LIVER: Mild intrahepatic connection hepatic ductal dilatation is stable. No obstructing mass or lesion. The gallbladder is surgically absent. SPLEEN: Normal size without lesion. PANCREAS: Multiple calcifications are seen throughout the pancreas. No ductal dilatation or mass. KIDNEYS: Normal in size and shape. There is no mass, stone or hydronephrosis. ADRENAL GLANDS: Within normal limits. VASCULAR: Diffuse calcified atherosclerotic plaque of the aorta. No aneurysmal change. BOWEL/MESENTERY: Multiple fluid filled mildly dilated loops of small bowel. No inflammatory change observed. The calib er of the bowel slowly tapers at the level of the terminal ileum. No obstructing mass or lesion. Gardiner n shows scattered diverticuli without acute inflammation. The colon is normal in caliber. No free air or free fluid. ABDOMINAL WALL: Within normal limits. RETROPERITONEUM: There is no lymphadenopathy. BLADDER: No wall thickening or mass. REPRODUCTIVE: Within normal limits. INGUINAL: There is no lymphadenopathy or hernia. MUSCULOSKELETAL: Within normal limits for patient age. CONCLUSION: 1. Mildly dilated small bowel without obstructing mass or lesion. 2. Cardiomegaly. 3. Colonic diverticulosis. 4. Stable mild intrahepatic connection hepatic ductal dilatation possibly secondary to capacitance af fect from prior cholecystectomy. 5. Chronic pancreatitis. 6. Small hiatal hernia. Martin Arteaga Jr., MD on July 25, 2016 at 0:54 Board Certified Radiologist. This report was verified electronically.
[2016-07-25] MEDS ORDERED: ACETAMINOPHEN 325 MG TAB PO PRN (01:45)
[2016-07-25] MEDS ORDERED: BISACODYL 10 MG SUPP RECTAL PRN (01:45)
[2016-07-25] MEDS ORDERED: HYDROmorphone HCL PF 1 MG/ML VIAL IV PRN (01:45)
[2016-07-25] MEDS ORDERED: SODIUM CHLORID 0.9% 500 ML INJ 500 ML IV ONE (01:45)
[2016-07-25] MEDS ORDERED: SODIUM CHLORIDE 0.9% FLUSH 10 ML FLUSH IV FLUSH PRN (01:45)
[2016-07-25] MEDS ORDERED: ONDANSETRON HCL 4 MG/2 ML VIAL IVP PRN (01:45)
[2016-07-25] MEDS ORDERED: ACETAMINOPHEN/HYDROcodone 325 MG/5 MG TAB PO PRN (01:45)
[2016-07-25] MEDS ORDERED: PIPERACIL-TAZO 3.375 GM PREMIX 50 ML IV ONE (01:45)
[2016-07-25] MEDS: SODIUM CHLOR 0.9% 1000 ML INJ 1,000 ML IV SCH ×2 (01:55→08:15)
[2016-07-25] MEDS ORDERED: PANTOPRAZOLE SODIUM 40 MG VIAL IV PUSH SCH (02:00)
[2016-07-25 02:14] VITALS: BP 134/67; PULSE 58; RESP 17; TEMP 97.7; O2SAT 98
[2016-07-25 04:05] VITALS: BP 147/70; PULSE 66; RESP 18; TEMP 98.8; O2SAT 96
[2016-07-25 07:23] VITALS: BP 144/74; PULSE 61; RESP 18; O2SAT 97
[2016-07-25] MEDS ORDERED: PIPERACIL-TAZO 3.375 GM PREMIX 50 ML IV SCH (08:00)
[2016-07-25 08:30] VITALS: BP 162/81; PULSE 70; RESP 16; TEMP 97.5; O2SAT 97
[2016-07-25] MEDS ORDERED: SODIUM CHLORIDE 0.9% FLUSH 10 ML FLUSH IV FLUSH SCH (09:00)
[2016-07-25] MEDS ORDERED: DORZOLAMIDE/TIMOLOL OPTH SOLN 10 ML BTL LEFT EYE SCH (10:00)
[2016-07-25] MEDS ORDERED: CIPROFLOXACIN 500 MG TAB PO SCH ×2 (10:00→21:00)
[2016-07-25] MEDS: DILTIAZEM-CD 300 MG CAP ER PO SCH ×2 (10:00→11:51)
[2016-07-25] MEDS ORDERED: RIVAROXABAN 20 MG TAB PO SCH (10:00)
[2016-07-25] MEDS ORDERED: prednisoLONE ACETATE 1% OPHT SUSP 5 ML BTL LEFT EYE SCH (10:00)
--- NOTE | 2016-07-25 10:34 | EKG ---
Date Performed: 07/24/2016 Time Performed: 23:13:36 PTAGE: 86 years EKG: Atrial fibrillation. Extensive ST-T changes are nonspecific Abnormal ECG PREVIOUS TRACING : 03/09/2015 11.31 DOCTOR: Matthias Joiner Interpretating Date/Time 07/25/2016 10:32:59
--- NOTE | 2016-07-25 11:49 | HHI.HP ---
[facility] Service [facility] Primary Care Physician Catherine Bhatt MD Admission Diagnosis UTI/ileus Diagnoses: (1) Abdominal pain Diagnosis: Principal (2) Ileus Diagnosis: Principal (3) Urinary tract infection Diagnosis: Principal Chief Complaint: Abdominal pain Travel History International Travel<30 Days: No Contact w/Intl Traveler <30 Da: No Traveled to Known Affected Are: No History of Present Illness 86-year-old female with known history of hypertension, atrial fibrillation who presented to hospital because of abdominal pain. Patient states that she was here the hospital a few days ago diagnosed with urinary tract infection and was prescribed Macrobid. However she states that she did have abdominal pain in the lower abdomen and continued to move its way up into her upper abdomen. She states that she was called by the hospital and notified that she needed to switch her antibiotics over to Cipro, she has not obtain the prescription as of yet. Because of the pain that spread up to her abdomen she came to the hospital. She had workup done in the emergency department found to have mildly dilated small bowel without any obstruction. Because of her pain and CT finding is recommended by the ER physician the patient be observed in the hospital for ileus. At the time evaluating the patient this morning she states that her bowels have moved quite nicely and she is no longer experiencing any pain and is asking to go home. Patient denies any abdominal pain at this time, nausea, vomiting, hematemesis, melena. Review of Systems Constitutional: DENIES: Diaphoretic episodes, Fatigue, Fever, Weight gain, Weight loss, Chills, Dizziness, Change in appetite, Night Sweats Eyes: DENIES: Blurred vision, Diplopia, Eye inflammation, Eye pain, Vision loss , Double Vision Ears, nose, mouth, throat: DENIES: Vertigo, Nasal discharge, Throat pain, Ear Pain, Running Nose, Sinus Pain Respiratory: DENIES: Apneas, Cough, Snoring, Wheezing, Hemoptysis, Sputum production, Shortness of breath Cardiovascular: COMPLAINS OF: PND, DENIES: Chest pain, Palpitations, Syncope, Dyspnea on Exertion, Lower Extremity Edema, Orthopnea Gastrointestinal: COMPLAINS OF: Abdominal pain, DENIES: Black stools, Bloody stools, Constipation, Diarrhea, Nausea, Vomiting, Difficulty Swallowing, Anorexia Neurologic: DENIES: Abnormal gait, Headache, Localized weakness, Paresthesias, Seizures, Speech Problems, Tremor, Poor Balance Psychiatric: COMPLAINS OF: Hallucinations, DENIES: Anxiety, Confusion, Mood changes, Depression Past Family Social History Past Medical History Hypertension Atrial fibrillation history of pancreatitis Past Surgical History Cataract surgery Cholecystectomy Hysterectomy Left lower leg skin graft Bilateral knee replacement Bladder surgery Reported Medications Reported Meds & Active Scripts Active Macrobid (Nitrofurantoin Monoh/Nitrofur Macro) 100 Mg Cap 100 Mg PO BID Reported Xarelto (Rivaroxaban) 20 Mg Tab 20 Mg PO DAILY Probenecid 500 Mg Tab 500 Mg PO DAILY Pred Forte Opth Drops (Prednisolone Acetate Opth Drops) 1% Susp 1 Drop LEFT EYE DAILY Potassium Chloride CR (Potassium Chloride) 10 Meq Tab 10 Meq PO DAILY Losartan (Losartan Potassium) 25 Mg Tab 25 Mg PO DAILY Diltiazem HCl ER (Diltiazem HCl Coated Beads) 300 Mg Cap 300 Mg PO DAILY Digoxin 0.125 Mg Tab 0.125 Mg PO HS Cosopt Opth Drops (Dorzolamide-Timolol Opth Drops) 22.3-6.8 Mg/Ml Soln 1 Drop LEFT EYE BID Bumetanide 0.5 Mg Tab 0.5 Mg PO DAILY Brimonidine Opth Drops (Brimonidine Tartrate) 0.2% Soln 1 Drop LEFT EYE BID Allergies: Coded Allergies: Acarides (Mites) (Verified Allergy, Severe, 07/24/16) Beef (Verified Allergy, Severe, 07/24/16) Cultivated Oat Pollen (Verified Allergy, Severe, 07/24/16) Grass (Verified Allergy, Severe, 07/24/16) Milk (Verified Allergy, Severe, Sneezing, 07/24/16) Molds and Smuts (Verified Allergy, Severe, 07/24/16) Morphine (Verified Allergy, Severe, CAN NOT TAKE HX PANCREATITIS, 07/24/16) Family History Reviewed is significant for heart disease Social History Patient denies any tobacco, alcohol or illicit drugs Physical Exam Vital Signs Vital Signs Date Time Temp Pulse Resp B/P Pulse Ox O2 Delivery O2 Flow Rate FiO2 07/25/16 08:30 97.5 70 16 162/81 97 07/25/16 07:23 61 18 144/74 97 Room Air 07/25/16 04:05 98.8 66 18 147/70 96 Room Air 07/25/16 02:14 97.7 58 17 134/67 98 Room Air 07/25/16 01:00 62 18 117/70 94 Room Air 07/24/16 23:45 66 17 140/78 95 Room Air 07/24/16 23:39 18 07/24/16 22:46 Room Air 07/24/16 21:49 97.7 88 18 121/77 96 Physical Exam GENERAL: Well-developed, well-nourished, in no acute distress. alert and orientated HEENT: Head is normocephalic without any lesions or masses noted. Facial features are symmetric. Eyes: Pupils equal round reactive to light. Extraocular muscles are intact. Conjunctivae were clear. Oropharyngeal: Pharynx without any erythema edema. Tongue is midline without deviation. Buccal mucosa is moist without any masses or lesions NECK: Supple without any masses. Trachea midline no deviation. No JVD, no bruits are appreciated CARDIAC: Regular rhythm, regular rate. S1/S2 are heard. 2/6 murmur, no gallops or rubs. LUNGS: Clear to auscultation bilaterally. No wheeze, rhonchi or rales. No use of accessory muscles on inspiration or expiration. ABDOMEN: Soft, nontender. Nondistended. Bowel sounds heard in all 4 quadrants. No organomegaly or masses. Negative rebound, negative guarding EXTREMITIES: No edema, pulses are equal bilaterally. No cyanosis or clubbing NEUROLOGY: Mood and affect appear appropriate. Cranial nerves II through XII grossly intact. Muscle strength 5/5 in upper and lower extremities bilaterally. Deep tendon reflexes are 2+ in upper and lower extremities bilaterally. Laboratory Laboratory Tests Test 07/24/16 07/24/16 07/25/16 22:00 22:59 02:31 Urine Color YELLOW Urine Turbidity CLEAR Urine pH 5.5 Urine Specific [place] 1.008 Urine Protein NEG Urine Glucose (UA) NEG Urine Ketones NEG Urine Occult Blood NEG Urine Nitrite NEG Urine Bilirubin NEG Urine Leukocyte Esterase NEG Urine WBC 0-2 Urine WBC Clumps OCC Urine Squamous Epithelial 0-5 Cells Urine Hyaline Casts 10-14 Urine Mucus OCC Microscopic Urinalysis Comment CULTURE INDICATED White Blood Count 10.8 Red Blood Count 3.94 Hemoglobin 13.1 Hematocrit 39.7 Mean Corpuscular Volume 100.6 Mean Corpuscular Hemoglobin 33.2 Mean Corpuscular Hemoglobin 33.0 Concent Red Cell Distribution Width 14.6 Platelet Count 301 Mean Platelet Volume 8.3 Neutrophils (%) (Auto) 72.7 Lymphocytes (%) (Auto) 17.5 Monocytes (%) (Auto) 6.8 Eosinophils (%) (Auto) 0.6 Basophils (%) (Auto) 2.4 Neutrophils # (Auto) 7.8 Lymphocytes # (Auto) 1.9 Monocytes # (Auto) 0.7 Eosinophils # (Auto) 0.1 Basophils # (Auto) 0.3 CBC Comment DIFF FINAL Differential Comment Sodium Level 133 Potassium Level 4.3 Chloride Level 97 Carbon Dioxide Level 23.9 Anion Gap 12 Blood Urea Nitrogen 22 Creatinine 1.00 Estimat Glomerular Filtration 52 Rate Random Glucose 130 Calcium Level 9.8 Total Bilirubin 0.4 Aspartate Amino Transf 25 (AST/SGOT) Alanine Aminotransferase 24 (ALT/SGPT) Alkaline Phosphatase 87 Total Protein 7.8 Albumin 3.6 Lipase 248 Lactic Acid Level 0.9 Date/Time Procedure Status Source Growth 07/25/16 01:55 Aerobic Blood Culture Received Blood Peripheral Pending 07/25/16 01:55 Anaerobic Blood Culture Received Blood Peripheral Pending 07/24/16 22:00 Urine Culture Received Urine Clean Catch Pending Result Diagram: 07/24/16225807/24/[id number] Imaging Last Impressions Abdomen/Pelvis CT 07/24/168 Signed Impressions: Service Date/Time: Monday, July 25, 2016 00:19 - CONCLUSION: 1. Mildly dilated small bowel without obstructing mass or lesion. 2. Cardiomegaly. 3. Colonic diverticulosis. 4. Stable mild intrahepatic connection hepatic ductal dilatation possibly secondary to capacitance affect from prior cholecystectomy. 5. Chronic pancreatitis. 6. Small hiatal hernia. Martin Arteaga Jr., MD Assessment and Plan Assessment and Plan Abdominal pain with CT finding of mildly dilated small bowel without any obstruction: Patient clinically improved after bowel movement. We'll obtain flat and upright abdominal x-rays to evaluate for resolution. Patient tolerating diet well. Urinary tract infection: Previous culture indicates Enterobacter cloacae, patient continued on Cipro Chronic medical problems to include hypertension, atrial fibrillation: Home medications have been continued DVT prevention: Patient on Xarelto Written by Bahman Marshall PA-C, acting as scribe for Dr. Cho on 07/25/16 at 1445. The documentation accurately reflects the work and decisions performed face-to- face by Dr. Cho on 07/25/16 at 1445. Discharge disposition Discharge home in stable condition Activity: Ad rona. Diet: Healthy heart diet Medications per medication reconciliation Follow-up with primary medical doctor one week Problem Qualifiers (1) Abdominal pain: Qualified Code: R10.84 - Generalized abdominal pain (2) Urinary tract infection: Qualified Code: N30.00 - Acute cystitis without hematuria Bahman Marshall Jul 25, 2016 11:49
[2016-07-25] MEDS ORDERED: CIPR-9 PO (11:50)
--- NOTE | 2016-07-25 11:52 | HHI.DCPOC ---
Discharge Care Plan Diagnosis: (1) Ileus (2) Urinary tract infection Goals to Promote Your Health * To prevent worsening of your condition and complications * To maintain your health at the optimal level Directions to Meet Your Goals Take your medications as prescribed Follow your dietary instruction Follow activity as directed Keep your appointments as scheduled Take your immunizations and boosters as scheduled If your symptoms worsen call your PCP, if no PCP go to Urgent Care Center or Emergency Room Smoking is Dangerous to Your Health. Avoid second hand smoke Call the 24-hour hour crisis hotline for domestic abuse at Bahman Marshall Jul 25, 2016 11:52
[2016-07-25 12:00] VITALS: BP 139/75; PULSE 68; RESP 18; TEMP 96.7; O2SAT 97
[2016-07-25] MEDS ORDERED: LACTOBACILLUS ACIDOPHILUS TAB PO SCH (13:00)
[2016-07-25] MEDS ORDERED: LACTCHW3 CHEW (14:44)
--- NOTE | 2016-07-25 17:25 | RADHPO ---
EXAM DATE/TIME: 07/25/2016 12:31 [facility] COMPARISON: CT ABDOMEN & PELVIS W CONTRAST, July 25, 2016, 0:19. INDICATIONS : Abdominal discomfort; Evaluate for ileus. MEDICAL HISTORY : Rheumatoid arthritis. Pancreatitis. Diverticulitis. Hypertension SURGICAL HISTORY : Cholecystectomy. Hysterectomy. Colon resection. Cystocele. Rectocele ENCOUNTER: Subsequent ACUITY: 2 days PAIN SCORE: 5/10 LOCATION: Abdomen. FINDINGS: Surgical clips are present from previous cholecystectomy. There are multiple pancreatic calcification s consistent with chronic pancreatitis. There is mild dilatation of occasional air-filled bowel loops , most conspicuously in the left upper moderate. There is excreted contrast in the urinary bladder. D ense vascular calcifications are noted. Mild degenerative changes are present in the spine and hips. CONCLUSION: Mild distention of visualized small bowel Juanpablo Rosario MD on July 25, 2016 at 17:22 Board Certified Radiologist. This report was verified electronically.
[2016-07-25] MEDS ORDERED: BRIMONIDINE TARTRATE 0.2% OPHT SOLN 5 ML BTL LEFT EYE SCH (21:00)
[2016-07-25] MEDS ORDERED: DIGOXIN 0.125 MG TAB PO SCH (21:00)
[2016-07-26] MEDS ORDERED: LOSARTAN 25 MG TAB PO SCH (09:00)
[2016-07-26] MEDS ORDERED: POTASSIUM CHLORIDE 10 MEQ CONTROLLED RELEASE TAB PO SCH (09:00)
[2016-07-26] MEDS ORDERED: BUMETANIDE 1 MG TAB PO SCH (09:00)
[2016-07-26] MEDS ORDERED: PROBENECID 500 MG TAB PO SCH (09:00)
== END 2016-07-25 15:24 | disposition home or self-care (01) ==
LOC: PHED 21:20 → PHEDA 07-25 01:33 → PHEDH 07-25 05:32 → PH3B 07-25 07:40
PROVIDERS: ADMIT Family Medicine; ATTEND Family Medicine
DX: K56.7 Ileus, unspecified (principal); N39.0 Urinary tract infection, site not specified; I48.91 Unspecified atrial fibrillation; I10 Essential (primary) hypertension; J45.909 Unspecified asthma, uncomplicated; E78.00 Pure hypercholesterolemia, unspecified; Z96.653 Presence of artificial knee joint, bilateral; Z91.011 Allergy to milk products; Z88.5 Allergy status to narcotic agent; Z91.018 Allergy to other foods; Z91.048 Other nonmedicinal substance allergy status; Z91.09 Other allergy status, other than to drugs and biological substances; Z90.49 Acquired absence of other specified parts of digestive tract; Z79.01 Long term (current) use of anticoagulants
CPT/HCPCS: 74020; 74177; 80053; 81001; 83605; 83690; 85025; 87040; 87086; 93005; 96374; 96375; 99285; C9113; G0378; J1170; J2405; J2543; J7030; J7040; Q9967

== ENCOUNTER 2016-08-27 11:08 | Emergency (ER) | payer OTHER ==
[~2016-08-27] VITALS: Ht 154.9 cm; Wt 60.7 kg
[~2016-08-27 11:08] MED LIST changes: +CIPR-9 PO; +LACTCHW3 CHEW; -MACR100C2 PO
[2016-08-27 11:17] VITALS: BP 171/86; PULSE 72; RESP 16; TEMP 97.5; O2SAT 100
[2016-08-27 11:33] LABS: GLUCOSE,URINE NEG (NEG); KETONE, URINE NEG (NEG)
[2016-08-27 11:35] LABS: BLOOD, URINE MOD (NEG); NITRITE,URINE POS (NEG)
[2016-08-27] MEDS ORDERED: PHENAZOPYRIDINE HCL 100 MG TAB PO ONE (11:45)
[2016-08-27 11:46] LABS: METHOD OF COLLECTION CLEAN CATCH; URINE COLOR YELLOW (YELLW/STRAW)
[2016-08-27 11:47] LABS: BACTERIA, URINE MANY /hpf; COMMENT (UR) CULTURE INDICATED; CULTURE IF INDICATED CULTURE INDICATED; WBC, URINE INNUM /hpf (0-5)
[2016-08-27 12:26] LABS: AUTOMATED NEUTROPHIL # 6.4 TH/MM3 (1.8-7.7); BASOPHIL # 0.1 TH/MM3 (0-0.2); BASOPHIL % 0.7 % (0.0-2.0); EOSINOPHIL # 0.1 TH/MM3 (0-0.4); EOSINOPHIL % 1.3 % (0.0-4.0); HEMATOCRIT 39.6 % (35.0-46.0); HEMO FLAGS DIFF FINAL; LYMPH % 21.1 % (9.0-44.0); MEAN CELL VOLUME 100.7 FL (80.0-100.0); MEAN CORPUSCULAR HEMOGLOBIN 34.7 PG (27.0-34.0); MEAN CORPUSCULAR HGB CONC 34.5 % (32.0-36.0); MONO % 7.1 % (0.0-8.0); NEUT % 69.8 % (16.0-70.0); PLATELET COUNT 235 TH/MM3 (150-450); RED BLOOD COUNT 3.93 MIL/MM3 (4.00-5.30); RED CELL DISTRIBUTION WIDTH 14.2 % (11.6-17.2); WHITE BLOOD COUNT 9.3 TH/MM3 (4.0-11.0)
[2016-08-27 12:33] LABS: CHLORIDE 103 MEQ/L (98-107); POTASSIUM 4.8 MEQ/L (3.5-5.1); SODIUM (NA) 137 MEQ/L (136-145)
[2016-08-27 12:37] LABS: ANION GAP 7 MEQ/L (5-15); BICARBONATE 26.6 MEQ/L (21.0-32.0); BLOOD UREA NITROGEN 21 MG/DL (7-18)
[2016-08-27 12:40] LABS: ALT (GPT) 27 U/L (10-53); AST (GOT) 38 U/L (15-37); GLOMERULAR FILTRATION RATE 79 ML/MIN (>89)
[2016-08-27 12:42] LABS: TOTAL BILIRUBIN ADULT 0.7 MG/DL (0.2-1.0)
[2016-08-27 12:43] LABS: ALKALINE PHOSPHATASE 69 U/L (45-117)
[2016-08-27] MEDS ORDERED: CIPR-9 PO (12:49)
[2016-08-27] MEDS ORDERED: PYRI200T4 PO (12:49)
--- NOTE | 2016-08-27 12:49 | PD ---
HPI Chief Complaint: Complaint Time Seen by Provider: 11:34 Travel History International Travel<30 days: No Contact w/Intl Traveler<30days: No Traveled to known affect area: No History of Present Illness HPI Patient is an 86-year-old female who comes in complaining of burning with urination. She also reports urgency and frequency. She says she's had some chills, but no fevers. She says this is been going on for about the past week. She has history of frequent urinary tract infections. She is seeing a year now just who has been dilating her urethra. She says that her symptoms are similar to past UTIs. She denies nausea or vomiting. She says she had some lower abdominal pain, but this is gone away. [facility] Past Medical History Hx Anticoagulant Therapy: Yes (xarelto) Asthma: Yes ( CHILD) Atrial Fibrillation: Yes Heart Rhythm Problems: Yes (A. FIB) Cancer: No Cardiovascular Problems: Yes High Cholesterol: Yes Congestive Heart Failure: No COPD: No Diminished Hearing: No Diverticulitis: Yes Endocrine: No Gastrointestinal Disorders: Yes (HX PANCREATITIS 1989) Genitourinary: Yes (BLADDER INFECTION, UTIs) Hiatal Hernia: Yes Hypertension: Yes Implanted Vascular Access Dvce: Yes Neurologic: No Psychiatric: No Respiratory: Yes Immunizations Current: No Pancreatitis: Yes ?: Not Menopausal: Yes : 3 Para: 2 Miscarriage: 1 Past Surgical History Abdominal Surgery: Yes (DIVERTICULITIS; CHOLECYSTECTOMY) Body Medical Devices: knee replacement bilateral Cholecystectomy: Yes Genitourinary Surgery: Yes ([facility] ) Gynecologic Surgery: Yes ([facility]) Hysterectomy: Yes Joint Replacement: Yes (bilat KNEE) Tonsillectomy: Yes Other Surgery: Yes (LEFT LOWER LEG SKIN GRAFT 2015) Social History Alcohol Use: No Tobacco Use: No Substance Use: No Allergies-Medications (Allergen,Severity, Reaction): Coded Allergies: Acarides (Mites) (Verified Allergy, Severe, 08/27/16) Beef (Verified Allergy, Severe, 08/27/16) Cultivated Oat Pollen (Verified Allergy, Severe, 08/27/16) Grass (Verified Allergy, Severe, 08/27/16) Milk (Verified Allergy, Severe, Sneezing, 08/27/16) Molds and Smuts (Verified Allergy, Severe, 08/27/16) Morphine (Verified Allergy, Severe, CAN NOT TAKE HX PANCREATITIS, 08/27/16) Reported Meds & Prescriptions Reported Meds & Active Scripts Active Pyridium (Phenazopyridine HCl) 200 Mg Tab 200 Mg PO Q8H PRN 3 Days Cipro (Ciprofloxacin HCl) 500 Mg Tab 500 Mg PO BID 5 Days Lactinex (Lactobacillus Acidophilus) 1 Chew 1 Tab CHEW BID Reported Xarelto (Rivaroxaban) 20 Mg Tab 20 Mg PO DAILY Probenecid 500 Mg Tab 500 Mg PO DAILY Potassium Chloride CR (Potassium Chloride) 10 Meq Tab 10 Meq PO DAILY Losartan (Losartan Potassium) 25 Mg Tab 25 Mg PO DAILY Diltiazem HCl ER (Diltiazem HCl Coated Beads) 300 Mg Cap 300 Mg PO DAILY Digoxin 0.125 Mg Tab 0.125 Mg PO HS Cosopt Opth Drops (Dorzolamide-Timolol Opth Drops) 22.3-6.8 Mg/Ml Soln 1 Drop LEFT EYE BID Bumetanide 0.5 Mg Tab 0.5 Mg PO DAILY Brimonidine Opth Drops (Brimonidine Tartrate) 0.2% Soln 1 Drop LEFT EYE BID Review of Systems Except as stated in HPI: all other systems reviewed are Neg General / Constitutional: Positive: Chills, No: Fever HENT: No: Headaches, Lightheadedness Cardiovascular: No: Chest Pain or Discomfort Respiratory: No: Shortness of Breath Gastrointestinal: No: Nausea, Vomiting Genitourinary: Positive: Urgency, Frequency, Dysuria, No: Flank Pain Skin: No Rash, No Change in Pigmentation Neurologic: No: Weakness, Dizziness Physical Exam Narrative GENERAL: Awake and alert, no acute distress. SKIN: Focused skin assessment warm/dry. HEAD: Atraumatic. Normocephalic. EYES: Pupils equal and round. No scleral icterus. ENT: Mucous membranes pink and moist. NECK: Trachea midline. No JVD. CARDIOVASCULAR: Regular rate and rhythm. No murmur appreciated. RESPIRATORY: No accessory muscle use. Clear to auscultation. Breath sounds equal bilaterally. GASTROINTESTINAL: Abdomen soft, non-tender, nondistended. No CVA tenderness. MUSCULOSKELETAL: No obvious deformities. No clubbing. No cyanosis. No edema. NEUROLOGICAL: Awake and alert. No obvious cranial nerve deficits. Motor grossly within normal limits. Normal speech. PSYCHIATRIC: Appropriate mood and affect; insight and judgment normal. Data Data Last Documented VS Vital Signs Date Time Temp Pulse Resp B/P Pulse Ox O2 Delivery O2 Flow Rate FiO2 08/27/16 11:17 97.5 72 16 171/86 100 Orders Urinalysis - C+S If Indicated (08/27/16 11:23) Complete Blood Count With Diff (08/27/16 11:42) Comprehensive Metabolic Panel (08/27/16 11:42) Phenazopyridine (Pyridium) (08/27/16 11:45) Urine Culture (08/27/16 11:28) Labs Laboratory Tests Test 08/27/16 08/27/16 11:28 12:15 Urine Collection Type CLEAN CATCH Urine Color YELLOW Urine Turbidity MOD Urine pH 6.0 Urine Specific [place] 1.015 Urine Protein 100 mg/dL Urine Glucose (UA) NEG mg/dL Urine Ketones NEG mg/dL Urine Occult Blood MOD Urine Nitrite POS Urine Bilirubin NEG Urine Leukocyte Esterase LARGE Urine RBC 20-24 /hpf Urine WBC INNUM /hpf Urine Squamous Epithelial 6-8 /hpf Cells Urine Bacteria MANY /hpf Microscopic Urinalysis Comment CULTURE INDICATED Urine Collection Time 11:28 White Blood Count 9.3 TH/MM3 Red Blood Count 3.93 MIL/MM3 Hemoglobin 13.6 GM/DL Hematocrit 39.6 % Mean Corpuscular Volume 100.7 FL Mean Corpuscular Hemoglobin 34.7 PG Mean Corpuscular Hemoglobin 34.5 % Concent Red Cell Distribution Width 14.2 % Platelet Count 235 TH/MM3 Mean Platelet Volume 8.3 FL Neutrophils (%) (Auto) 69.8 % Lymphocytes (%) (Auto) 21.1 % Monocytes (%) (Auto) 7.1 % Eosinophils (%) (Auto) 1.3 % Basophils (%) (Auto) 0.7 % Neutrophils # (Auto) 6.4 TH/MM3 Lymphocytes # (Auto) 2.0 TH/MM3 Monocytes # (Auto) 0.7 TH/MM3 Eosinophils # (Auto) 0.1 TH/MM3 Basophils # (Auto) 0.1 TH/MM3 CBC Comment DIFF FINAL Differential Comment Sodium Level 137 MEQ/L Potassium Level 4.8 MEQ/L Chloride Level 103 MEQ/L Carbon Dioxide Level 26.6 MEQ/L Anion Gap 7 MEQ/L Blood Urea Nitrogen 21 MG/DL Creatinine 0.70 MG/DL Estimat Glomerular Filtration 79 ML/MIN Rate Random Glucose 99 MG/DL Calcium Level 9.3 MG/DL Total Bilirubin 0.7 MG/DL Aspartate Amino Transf 38 U/L (AST/SGOT) Alanine Aminotransferase 27 U/L (ALT/SGPT) Alkaline Phosphatase 69 U/L Total Protein 7.5 GM/DL Albumin 3.6 GM/DL [facility] Medical Decision Making Medical Screen Exam Complete: Yes Emergency Medical Condition: Yes Medical Record Reviewed: Yes Differential Diagnosis UTI versus pyelonephritis versus bladder spasms Narrative Course Patient is an 86-year-old female comes in complaining of dysuria, urgency, frequency. She has history of frequent UTIs and says this feels similar. Exam shows no acute abnormalities. IV established, labs sent. Urinalysis positive for infection. Based on previous sensitivities, we will give patient prescription for Cipro. She is advised to follow-up with her urologist. Advised to return to the ED as needed for any worsening symptoms. Labs show no acute abnormalities, white blood cell count is within normal limits , creatinine is within normal limits. Diagnosis Primary Impression: Urinary tract infection Qualified Code: N30.00 - Acute cystitis without hematuria Patient Instructions: General Instructions, Urinary Tract Infection in Women ( ED) Additional Instructions: Follow-up with your urologist. Make sure to take all of her antibiotic. He can take Pyridium as needed for pain for the next 2 or 3 days. Return to the ED as needed for any worsening symptoms. Scripts Phenazopyridine (Pyridium)200 Mg [id number] Mg PO Q8H PRN (DYSURIA) 3 Days Ref 0 Prov:Jesusita Sampson MD 08/27/16 Ciprofloxacin (Cipro)500 Mg [id number] Mg PO BID 5 Days Ref 0 Prov:Jesusita Sampson MD 08/27/16 Disposition: 01 DISCHARGE HOME Condition: Stable Jesusita Sampson MD August 27, 2016 12:49
== END 2016-08-27 13:01 | disposition home or self-care (01) ==
LOC: PHED 11:08
DX: N39.0 Urinary tract infection, site not specified (principal); B96.20 Unspecified Escherichia coli [E. coli] as the cause of diseases classified elsewhere
CPT/HCPCS: 80053; 81001; 85025; 87077; 87086; 87186; 99283

== ENCOUNTER → 2016-10-06 | Outpatient (CLI) | payer OTHER ==
[~2016-10-06] MED LIST changes: -PRED1SUS LEFT EYE; +PYRI200T4 PO
--- NOTE | 2016-10-06 17:11 | RADRPT ---
EXAM DATE/TIME: 10/06/2016 00:00 [place] COMPARISON: No previous studies available for comparison. INDICATIONS : Claudication TECHNIQUE: Four-cuff ankle and brachial pressures were obtained. Pulse cuff waveform tracings of the ankles were recorded, and ankle-brachial indices were calculated. PRESSURES (mmHg): Brachial (arm): Left 138 Ankle: Right >170 Left >170 ISI: Right CNO Left CNO TBI: Right 0.41 Left 0.96 PULSED CUFF WAVEFORMS: Demonstrate normal amplitude bilaterally. CONCLUSION: ABIs cannot be calculated as we are unable to occlude the distal vasculature. This is generally seen with densely calcified non-compressible vessels. As such, ISI and TBI evaluation is unreliable. CT an giography and runoff would be warranted for further assessment. Sin Eduardo MD on October 06, 2016 at 17:07 Board Certified Radiologist. This report was verified electronically.
== END ==
LOC: HCAV 12:57
PROVIDERS: ATTEND Colon & Rectal Surgery
DX: I73.9 Peripheral vascular disease, unspecified (principal)
CPT/HCPCS: 93922

== ENCOUNTER 2016-11-14 05:51 | Day surgery (SDC) | payer OTHER ==
[~2016-11-14] VITALS: Ht 154.9 cm; Wt 61.9 kg
[~2016-11-14 05:51] MED LIST changes: -CIPR-9 PO; -PYRI200T4 PO; +XARE15TA PO; -XARE20TA PO
[2016-11-14] MEDS ORDERED: SODIUM BICARBONATE 100 MEQ in D5W 1000 ML IV SCH (06:15)
[2016-11-14] MEDS ORDERED: SODIUM CHLORIDE 0.9% FLUSH 10 ML FLUSH IV FLUSH PRN ×2 (06:15)
[2016-11-14 06:35] VITALS: BP 159/95; PULSE 84; RESP 16; TEMP 98; O2SAT 100
[2016-11-14] MEDS ORDERED: NAPHSOL EACH EYE (06:41)
[2016-11-14] MEDS ORDERED: GENT0.2D2 EACH EYE (06:41)
[2016-11-14] MEDS ORDERED: PRED1SUS EACH EYE (06:41)
[2016-11-14 06:57] LABS: AUTOMATED NEUTROPHIL # 5.4 TH/MM3 (1.8-7.7); BASOPHIL # 0.1 TH/MM3 (0-0.2); BASOPHIL % 0.6 % (0.0-2.0); EOSINOPHIL # 0.2 TH/MM3 (0-0.4); EOSINOPHIL % 2.1 % (0.0-4.0); HEMATOCRIT 35.7 % (35.0-46.0); HEMO FLAGS DIFF FINAL; LYMPHOCYTE # 1.9 TH/MM3 (1.0-4.8); MEAN CELL VOLUME 105.4 FL (80.0-100.0); MEAN CORPUSCULAR HEMOGLOBIN 35.6 PG (27.0-34.0); MEAN CORPUSCULAR HGB CONC 33.8 % (32.0-36.0); MONO % 10.8 % (0.0-8.0); NEUT % 64.5 % (16.0-70.0); PLATELET COUNT 269 TH/MM3 (150-450); RED BLOOD COUNT 3.39 MIL/MM3 (4.00-5.30); RED CELL DISTRIBUTION WIDTH 13.4 % (11.6-17.2); WHITE BLOOD COUNT 8.4 TH/MM3 (4.0-11.0)
[2016-11-14 07:08] LABS: INTERNATIONAL NORMALIZED RATIO 0.9 RATIO; PROTHROMBIN TIME - PATIENT 10.2 SEC (9.8-11.6)
[2016-11-14 07:28] LABS: BICARBONATE 24.1 MEQ/L (21.0-32.0); POTASSIUM 3.7 MEQ/L (3.5-5.1)
[2016-11-14] MEDS ORDERED: HEPARIN SODIUM - IV 10,000 UNITS/10 ML VIAL ONE (08:05)
[2016-11-14] MEDS ORDERED: MIDAZOLAM HCL 5 MG/ML VIAL (1 ML) ONE (08:05)
[2016-11-14] MEDS ORDERED: IOHEXOL 300 MG/ML 50 ML BTL (for RAD DIAG) OTHER ONE (08:22)
[2016-11-14] MEDS ORDERED: oxyCODONE/ACETAMINOPHEN 5 MG/325 MG TAB PO PRN (09:45)
--- NOTE | 2016-11-14 10:04 | MA ---
cc: ANDREW MONSON DATE 11/14/2016 PREOPERATIVE DIAGNOSIS Wound right lower extremity. POSTOPERATIVE DIAGNOSIS Wound right lower extremity. PROCEDURE 1. Aortogram and selective right lower extremity angiogram. 2. Duplex ultrasound for access. SURGEON MD Rohit IV FLUIDS 250 cc. ESTIMATED BLOOD LOSS Minimal. Moderate sedation. COMPLICATIONS None. DISPOSITION To PACU. PROCEDURE The patient's bilateral groins were prepped and draped in sterile fashion after being under moderate sedation. I got access to the left common femoral artery using duplex ultrasound. I did inject approximately 5 cc of 1% lidocaine in the left groin and then I got percutaneous access using a 21-gauge needle, exchanged for a 4-Latvian micropuncture catheter using Seldinger technique, then exchanged for a 5-Latvian sheath. I then advanced an Omni-Flush catheter into the abdominal aorta. I then pulled my catheter down and after shooting AP aortogram and shot pelvic oblique arteriogram just above the takeoff of the iliac arteries. After this was done, I selected out the right common femoral artery and shot a selective right lower extremity arteriogram. After the right lower extremity arteriogram, I did shoot a left groin shot in order to make sure that I was able use an Angio-Seal closure device. At the end of the procedure I exchanged for a 6-[place] Angio-Seal, applied pressure to the left groin. FINDINGS My findings were that the abdominal aorta was patent. The bilateral renal arteries were patent. It should be noted that the distal abdominal aorta and iliac arteries were tortuous but patent. The bilateral common internal and external iliac arteries were patent. The left common femoral and profunda femoral artery was widely patent. The proximal and superficial femoral artery was patent and the sheath was in the groin just above the takeoff of the profunda femoral and superficial femoral artery. On the right the right common femoral and profunda femoral arteries were widely patent. The patient had two areas of stenosis in the right SFA, one proximally at the takeoff and then one distally. These appeared to be mild stenoses and they were no flow-limiting. The right popliteal artery was difficult to image secondary to having a previous knee replacement but we were able to visualize it in full and found that it was patent along its length. The patient had single-vessel runoff to the right anterior tibial artery. There was a moderate severe stenosis distally with otherwise the artery appeared to be patent along its length. It gave rise to the dorsalis pedis artery and the foot. The proximal tibioperoneal artery was patent and gave rise to the peroneal artery that was diminutive distally. It was difficult to visualize above the level of the ankle. The right posterior tibial artery did not appear to be visualized distally and neither did the medial or lateral plantar arteries. CONCLUSIONS The patient had appropriate inflow, had two short segments of mild SFA disease on the right and the main single-vessel runoff was through the right anterior tibial artery which appeared to be patent but calcified with disease along its length. DO TIMMY Shah/JUAN /9:16 AM /9:57 AM
[2016-11-24] MEDS ORDERED: CIPR-9 PO (10:02)
== END 2016-11-14 11:31 | disposition home or self-care (01) ==
LOC: HSDC 05:51 → HDIC 05:52 → HSDC 11:31
PROVIDERS: ATTEND Surgery
DX: I73.9 Peripheral vascular disease, unspecified (principal); M79.89 Other specified soft tissue disorders; S81.801A Unspecified open wound, right lower leg, initial encounter; X58.XXXA Exposure to other specified factors, initial encounter
CPT/HCPCS: 36247; 75710; 80048; 85025; 85610; C1769; G0269; J1644; J2250; J3010; Q9967

== ENCOUNTER 2016-11-26 16:11 | Emergency (ER) | payer OTHER ==
[~2016-11-26] VITALS: Ht 154.9 cm; Wt 61.0 kg
[~2016-11-26 16:11] MED LIST changes: +CIPR-9 PO; +GENT0.2D2 EACH EYE; +NAPHSOL EACH EYE; -POTA10TA8 PO; +PRED1SUS EACH EYE
[2016-11-26 16:14] VITALS: BP 161/81; PULSE 108; RESP 16; TEMP 97.7; O2SAT 98
[2016-11-26 16:48] LABS: BLOOD, URINE SMALL (NEG); GLUCOSE,URINE NEG (NEG); KETONE, URINE NEG (NEG); NITRITE,URINE POS (NEG)
[2016-11-26 16:49] LABS: METHOD OF COLLECTION CLEAN CATCH; URINE COLOR YELLOW (YELLW/STRAW)
[2016-11-26] MEDS ORDERED: POTA10CA PO (16:49)
[2016-11-26] MEDS ORDERED: AMPI500C8 PO (16:49)
--- NOTE | 2016-11-26 16:49 | PD ---
HPI Chief Complaint: Complaint Time Seen by Provider: 16:24 Travel History International Travel<30 days: No Contact w/Intl Traveler<30days: No Traveled to known affect area: No History of Present Illness HPI 86-year-old female complains of cloudy urine, strong smelling urine and urinary bladder pressure. Patient states that the symptoms started 3 days ago. Patient also had dysuria at that time. Patient was seen by urologist Dr. Bueno 2 days ago and was given prescription for ampicillin 500 mg 3 times a day. Patient has been taking ampicillin as directed. Patient states that the dysuria resolved. Patient states that she had persistent cloudy and strong smelling urine. Patient states that she is to have a lot of pressure on the urinary bladder. Patient denies any headache. Patient denies any chest pain or shortness of breath. Patient denies abdominal pain. Patient denies any back pain. Patient denies any fever chills. PFSH Past Medical History Hx Anticoagulant Therapy: Yes (xarelto) Asthma: Yes ( CHILD) Atrial Fibrillation: Yes Heart Rhythm Problems: Yes (A. FIB) Cancer: No Cardiovascular Problems: Yes High Cholesterol: Yes Congestive Heart Failure: No COPD: No Diminished Hearing: No Diverticulitis: Yes Endocrine: No Gastrointestinal Disorders: Yes (HX PANCREATITIS 1989) Genitourinary: Yes (BLADDER INFECTION, UTIs) Hiatal Hernia: Yes Hypertension: Yes Implanted Vascular Access Dvce: Yes Neurologic: No Psychiatric: No Respiratory: Yes Immunizations Current: No Pancreatitis: Yes Menopausal: Yes : 3 Para: 2 Miscarriage: 1 Past Surgical History Abdominal Surgery: Yes (DIVERTICULITIS; CHOLECYSTECTOMY) Body Medical Devices: knee replacement bilateral Cholecystectomy: Yes Genitourinary Surgery: Yes ([facility] ) [facility] Hysterectomy: Yes Joint Replacement: Yes (bilat KNEE) Tonsillectomy: Yes Other Surgery: Yes (LEFT LOWER LEG SKIN GRAFT 2015) Social History Alcohol Use: No Tobacco Use: No Substance Use: No Allergies-Medications (Allergen,Severity, Reaction): Coded Allergies: Acarides (Mites) (Verified Allergy, Severe, 11/26/16) Beef (Verified Allergy, Severe, 11/26/16) Cultivated Oat Pollen (Verified Allergy, Severe, 11/26/16) Grass (Verified Allergy, Severe, 11/26/16) Milk (Verified Allergy, Severe, PT DENIES, 11/26/16) Molds and Smuts (Verified Allergy, Severe, 11/26/16) Morphine (Verified Allergy, Severe, CAN NOT TAKE HX PANCREATITIS, 11/26/16) Reported Meds & Prescriptions Reported Meds & Active Scripts Active Reported Ampicillin 500 Mg Cap 500 Mg PO TID Potassium Chloride ER (Potassium Chloride) 10 Meq Cap 10 Meq PO DAILY Cipro (Ciprofloxacin HCl) 500 Mg Tab 500 Mg PO BID 10 Days Pred Forte Opth 1% (Prednisolone Acetate Opth 1%) 1% Susp 1 Drop EACH EYE BID Genteal Mild Opth Drops (Hypromellose) 0.2% Drops 1 Drop EACH EYE Q6H PRN Naphcon-A Opth Drops (Naphazoline-Pheniramine Opth Drops) 0.025-0.3 % Soln 1 Drop EACH EYE QID Xarelto (Rivaroxaban) 15 Mg Tab 15 Mg PO DAILY Losartan (Losartan Potassium) 25 Mg Tab 25 Mg PO DAILY Diltiazem HCl ER (Diltiazem HCl Coated Beads) 300 Mg Cap 300 Mg PO DAILY Digoxin 0.125 Mg Tab 0.125 Mg PO HS Cosopt Opth Drops (Dorzolamide-Timolol Opth Drops) 22.3-6.8 Mg/Ml Soln 1 Drop LEFT EYE BID Bumetanide 0.5 Mg Tab 0.5 Mg PO DAILY Brimonidine Opth Drops (Brimonidine Tartrate) 0.2% Soln 1 Drop LEFT EYE BID Review of Systems General / Constitutional: No: Fever Eyes: No: Visual changes HENT: No: Headaches Cardiovascular: No: Chest Pain or Discomfort Respiratory: No: Shortness of Breath Gastrointestinal: No: Abdominal Pain Genitourinary: No: Dysuria Musculoskeletal: No: Pain Skin: No Rash Neurologic: No: Weakness Psychiatric: No: Depression Endocrine: No: Polydipsia Hematologic/Lymphatic: No: Easy Bruising Physical Exam Narrative GENERAL: Well-nourished, well-developed patient. SKIN: Focused skin assessment warm/dry. HEAD: Normocephalic. EYES: No scleral icterus. No injection or drainage. NECK: Supple, trachea midline. No JVD or lymphadenopathy. CARDIOVASCULAR: Regular rate and rhythm without murmurs, gallops, or rubs. RESPIRATORY: Breath sounds equal bilaterally. No accessory muscle use. GASTROINTESTINAL: Abdomen soft, non-tender, nondistended. MUSCULOSKELETAL: No cyanosis, or edema. BACK: Nontender without obvious deformity. No CVA tenderness. Neurologic exam normal. Data Data Last Documented VS Vital Signs Date Time Temp Pulse Resp B/P Pulse Ox O2 Delivery O2 Flow Rate FiO2 11/26/16 16:14 97.7 108 16 161/81 98 Orders Urinalysis - C+S If Indicated (11/26/16 16:38) Urine Culture (11/26/16 16:42) Labs Laboratory Tests Test 11/26/16 16:42 Urine Collection Type CLEAN CATCH Urine Color YELLOW Urine Turbidity CLOUDY Urine pH 6.0 Urine Specific [place] 1.010 Urine Protein TRACE mg/dL Urine Glucose (UA) NEG mg/dL Urine Ketones NEG mg/dL Urine Occult Blood SMALL Urine Nitrite POS Urine Bilirubin NEG Urine Leukocyte Esterase LARGE Urine RBC 0-3 /hpf Urine WBC 50-99 /hpf Urine WBC Clumps MOD Urine Bacteria MOD /hpf Microscopic Urinalysis Comment CULTURE INDICATED MDM Medical Decision Making Medical Screen Exam Complete: Yes Emergency Medical Condition: Yes Interpretation(s) 1700 p.m. UA positive for WBC and bacteria. Differential Diagnosis Differential diagnosis including urethritis, UTI, pyelonephritis, nephrolithiasis. Narrative Course 86-year-old female with cloudy and strong smelling urine. Patient being treated by urologist for UTI with ampicillin. Patient's on day #3 ampicillin. Diagnosis Primary Impression: UTI (urinary tract infection) Qualified Code: N30.00 - Acute cystitis without hematuria Patient Instructions: General Instructions Additional Instructions: Stop ampicillin. Cipro as directed. Follow-up with personal physician. Return if worse. Med/Other Pt SpecificInfo: Prescription(s) given Scripts Ciprofloxacin (Cipro)500 Mg [id number] Mg PO BID #14 TAB Prov:Roverto Zhou MD 11/26/16 Disposition: 01 DISCHARGE HOME Condition: Stable Roverto Zhou MD Nov 26, 2016 16:49
[2016-11-26 16:53] LABS: BACTERIA, URINE MOD /hpf; COMMENT (UR) CULTURE INDICATED; CULTURE IF INDICATED CULTURE INDICATED; RBC, URINE 0-3 /hpf (0-3)
[2016-11-26] MEDS ORDERED: CIPR-9 PO (17:04)
[2016-11-26] MEDS ORDERED: LEVOFLOXACIN 500 MG TAB PO ONE (17:15)
[2016-12-01] MEDS ORDERED: CEFU1TAB20 PO (10:25)
[2016-12-01] MEDS ORDERED: BACT800T5 PO (10:25)
== END 2016-11-26 17:26 | disposition home or self-care (01) ==
LOC: PHED 16:11
DX: N30.00 Acute cystitis without hematuria (principal); B96.20 Unspecified Escherichia coli [E. coli] as the cause of diseases classified elsewhere
CPT/HCPCS: 81001; 87077; 87086; 87186; 99283

== ENCOUNTER 2017-03-11 10:42 | Emergency (ER) | payer OTHER ==
[~2017-03-11] VITALS: Ht 154.9 cm; Wt 62.0 kg
[~2017-03-11 10:42] MED LIST changes: +AMPI500C8 PO; +APIX2.5T PO; +BACT800T5 PO; +CEFU1TAB20 PO; -CIPR-9 PO; -LACTCHW3 CHEW; +POTA10CA PO; -PROB500T8 PO
[2017-03-11 10:48] VITALS: BP 149/83; PULSE 96; RESP 16; TEMP 97.9; O2SAT 96
[2017-03-11] MEDS ORDERED: CEPH250C PO (11:14)
[2017-03-11] MEDS ORDERED: DEXAMETHASONE SOD PHOS 4 MG/ML VIAL IM ONE (11:15)
--- NOTE | 2017-03-11 11:21 | PD ---
HPI Chief Complaint: Musculoskeletal Complaint Time Seen by Provider: 10:51 Travel History International Travel<30 days: No Contact w/Intl Traveler<30days: No Traveled to known affect area: No History of Present Illness HPI 86-year-old female with known history of gout presents with left hand/thumb pain 2 days. Patient reports she has had multiple gout flares within the same joint. She denies fever, chills or injury to the site. She reports her gouty flares are treated with steroids. She takes over the counter Tylenol as needed for pain. PFSH Past Medical History Hx Anticoagulant Therapy: Yes (xarelto) Asthma: Yes ( CHILD) Atrial Fibrillation: Yes Heart Rhythm Problems: Yes (A. FIB) Cancer: No Cardiovascular Problems: Yes High Cholesterol: Yes Congestive Heart Failure: No COPD: No Diminished Hearing: No Diverticulitis: Yes Endocrine: No Gastrointestinal Disorders: Yes (HX PANCREATITIS 1989) Gout: Yes Genitourinary: Yes (BLADDER INFECTION, UTIs) Hiatal Hernia: Yes Hypertension: Yes Implanted Vascular Access Dvce: Yes Neurologic: No Psychiatric: No Respiratory: Yes Immunizations Current: No Pancreatitis: Yes Menopausal: Yes : 3 Para: 2 Miscarriage: 1 Past Surgical History Abdominal Surgery: Yes (DIVERTICULITIS; CHOLECYSTECTOMY) Body Medical Devices: knee replacement bilateral Cholecystectomy: Yes Genitourinary Surgery: Yes ([facility] ) Gynecologic Surgery: Yes ([facility]) Hysterectomy: Yes Joint Replacement: Yes (bilat KNEE) Tonsillectomy: Yes Other Surgery: Yes (LEFT LOWER LEG SKIN GRAFT 2015) Social History Alcohol Use: No Tobacco Use: No Substance Use: No Allergies-Medications (Allergen,Severity, Reaction): Coded Allergies: Beef Containing Products (Unverified Allergy, Severe, 03/11/17) grass pollen (Unverified Allergy, Severe, 03/11/17) milk (Unverified Allergy, Severe, PT DENIES, 03/11/17) mold (Unverified Allergy, Severe, 03/11/17) morphine (Unverified Allergy, Severe, CAN NOT TAKE HX PANCREATITIS, ) pesticide (Unverified Allergy, Severe, 03/11/17) Reported Meds & Prescriptions Reported Meds & Active Scripts Active Reported Eliquis (Apixaban) 2.5 Mg Tab 2.5 Mg PO BID Cefuroxime (Cefuroxime Axetil) 500 Mg Tab 500 Mg PO BID Bactrim DS (Sulfamethoxazole-Trimethoprim) 800-160 Mg Tab 1 Tab PO BID Ampicillin 500 Mg Cap 500 Mg PO TID Potassium Chloride ER (Potassium Chloride) 10 Meq Cap 10 Meq PO DAILY Pred Forte Opth 1% (Prednisolone Acetate Opth 1%) 1% Susp 1 Drop EACH EYE BID Genteal Mild Opth Drops (Hypromellose) 0.2% Drops 1 Drop EACH EYE Q6H PRN Naphcon-A Opth Drops (Naphazoline-Pheniramine Opth Drops) 0.025-0.3 % Soln 1 Drop EACH EYE QID Xarelto (Rivaroxaban) 15 Mg Tab 15 Mg PO DAILY Losartan (Losartan Potassium) 25 Mg Tab 25 Mg PO DAILY Diltiazem HCl ER (Diltiazem HCl Coated Beads) 300 Mg Cap 300 Mg PO DAILY Digoxin 0.125 Mg Tab 0.125 Mg PO HS Cosopt Opth Drops (Dorzolamide-Timolol Opth Drops) 22.3-6.8 Mg/Ml Soln 1 Drop LEFT EYE BID Bumetanide 0.5 Mg Tab 0.5 Mg PO DAILY Brimonidine Opth Drops (Brimonidine Tartrate) 0.2% Soln 1 Drop LEFT EYE BID Review of Systems Except as stated in HPI: all other systems reviewed are Neg General / Constitutional: No: Fever Physical Exam Narrative GENERAL: Well-nourished, well-developed patient. SKIN: Focused skin assessment warm/dry. HEAD: Normocephalic. EYES: No scleral icterus. No injection or drainage. NECK: Supple, trachea midline. No JVD or lymphadenopathy. CARDIOVASCULAR: Regular rate and rhythm without murmurs, gallops, or rubs. RESPIRATORY: Breath sounds equal bilaterally. No accessory muscle use. GASTROINTESTINAL: Abdomen soft, non-tender, nondistended. MUSCULOSKELETAL: No cyanosis. Left hand: Notable swelling/tenderness/warmth/ erythema in the region of the first metacarpal and base of the thumb. Limited range of motion due to pain. No wounds or induration. Data Data Last Documented VS Vital Signs Date Time Temp Pulse Resp B/P (MAP) Pulse Ox O2 Delivery O2 Flow Rate FiO2 03/11/17 10:48 97.9 96 16 149/83 (105) 96 MDM Medical Decision Making Medical Screen Exam Complete: Yes Emergency Medical Condition: Yes Differential Diagnosis Gout, arthritis, other Narrative Course 86-year-old female with known history of gout presents with left hand/thumb pain 2 days. Patient reports she has had multiple gout flares within the same joint. She denies fever, chills or injury to the site. She reports her gouty flares are treated with steroids. She takes over the counter Tylenol as needed for pain. On exam she has notable swelling and mild warmth to the base of the left thumb. Patient has history of diverticulitis, colon resection, GI bleeds in the past for this reason she'll be given an IM injection of Decadron and instructed to follow-up with her doctor for recheck. Diagnosis Primary Impression: Gout Qualified Codes: M10.9 - Gout, unspecified Referrals: Primary Care Physician Additional Instructions: Take [id number] Tylenol as needed for pain. Follow-up gout [place] diet. Follow-up with her doctor for recheck. Return if he developed new or worsening symptoms. Disposition: 01 DISCHARGE HOME Condition: Stable Vicky Rolon Mar 11, 2017 11:20
== END 2017-03-11 11:33 | disposition home or self-care (01) ==
LOC: PHEFT 10:42
DX: M10.9 Gout, unspecified (principal); I10 Essential (primary) hypertension; E78.00 Pure hypercholesterolemia, unspecified; I48.91 Unspecified atrial fibrillation; J45.909 Unspecified asthma, uncomplicated; Z96.653 Presence of artificial knee joint, bilateral; Z79.01 Long term (current) use of anticoagulants; Z79.2 Long term (current) use of antibiotics; Z79.899 Other long term (current) drug therapy
CPT/HCPCS: 96372; 99284; J1100

== ENCOUNTER 2017-04-26 13:05 | Emergency (ER) | payer OTHER ==
[~2017-04-26] VITALS: Ht 154.9 cm; Wt 62.6 kg
[~2017-04-26 13:05] MED LIST changes: -AMPI500C8 PO; -BACT800T5 PO; +CEPH250C PO; -GENT0.2D2 EACH EYE; -XARE15TA PO
[2017-04-26 13:09] VITALS: BP 131/85; PULSE 60; RESP 18; TEMP 98; O2SAT 97
[2017-04-26] MEDS ORDERED: ONDANSETRON HCL 4 MG/2 ML VIAL IVP ONE (13:30)
[2017-04-26] MEDS ORDERED: SODIUM CHLORIDE 0.9% FLUSH 10 ML FLUSH IV FLUSH PRN (13:30)
--- NOTE | 2017-04-26 13:37 | PD ---
HPI Chief Complaint: General Weakness Time Seen by Provider: 13:15 Travel History International Travel<30 days: No Contact w/Intl Traveler<30days: No Traveled to known affect area: No History of Present Illness HPI 86-year-old female complains of loss of appetite for the past week or so. She reports a foul smell; it's unclear from where. Generalized weakness is reported. The patient's acquaintance arrives with paperwork which reveals history of pancreatic calcifications and masses seen on prior CT of the abdomen which was done here. The patient follows with Dr. Bhatt. The fever was reported to the triage nurse as well as bilateral knee pain however it was not endorsed to me. PFSH Past Medical History Hx Anticoagulant Therapy: Yes Asthma: Yes ( CHILD) Atrial Fibrillation: Yes Heart Rhythm Problems: Yes (A. FIB) Cancer: No Cardiovascular Problems: Yes High Cholesterol: Yes Congestive Heart Failure: No COPD: No Diminished Hearing: No Diverticulitis: Yes Endocrine: No Gastrointestinal Disorders: Yes (HX PANCREATITIS 1989) Gout: Yes Genitourinary: Yes (BLADDER INFECTION, UTIs) Hiatal Hernia: Yes Hypertension: Yes Implanted Vascular Access Dvce: Yes Neurologic: No Psychiatric: No Respiratory: Yes Immunizations Current: No Pancreatitis: Yes ?: Not Menopausal: Yes : 3 Para: 2 Miscarriage: 1 Past Surgical History Abdominal Surgery: Yes (DIVERTICULITIS; CHOLECYSTECTOMY) Body Medical Devices: knee replacement bilateral Cholecystectomy: Yes Genitourinary Surgery: Yes ([facility] ) Gynecologic Surgery: Yes ([facility]) Hysterectomy: Yes Joint Replacement: Yes (bilat KNEE) Tonsillectomy: Yes Other Surgery: Yes (LEFT LOWER LEG SKIN GRAFT 2015) Social History Alcohol Use: No Tobacco Use: No Substance Use: No Allergies-Medications (Allergen,Severity, Reaction): Coded Allergies: Beef Containing Products (Verified Allergy, Severe, 04/26/17) grass pollen (Verified Allergy, Severe, 04/26/17) milk (Verified Allergy, Severe, PT DENIES, 04/26/17) mold (Verified Allergy, Severe, 04/26/17) morphine (Verified Allergy, Severe, CAN NOT TAKE HX PANCREATITIS, 04/26/17) pesticide (Verified Allergy, Severe, 04/26/17) Reported Meds & Prescriptions Reported Meds & Active Scripts Active Tessalon Perles (Benzonatate) 100 Mg Cap 100 Mg PO TID PRN 7 Days Cetirizine (Cetirizine HCl) 10 Mg Tab 10 Mg PO DAILY 7 Days Tamiflu (Oseltamivir Phosphate) 75 Mg Cap 75 Mg PO BID Reported Eliquis (Apixaban) 2.5 Mg Tab 2.5 Mg PO BID Potassium Chloride ER (Potassium Chloride) 10 Meq Cap 10 Meq PO DAILY Pred Forte Opth 1% (Prednisolone Acetate Opth 1%) 1% Susp 1 Drop EACH EYE BID Losartan (Losartan Potassium) 25 Mg Tab 25 Mg PO DAILY Diltiazem HCl ER (Diltiazem HCl Coated Beads) 300 Mg Cap 300 Mg PO DAILY Digoxin 0.125 Mg Tab 0.125 Mg PO HS Cosopt Opth Drops (Dorzolamide-Timolol Opth Drops) 22.3-6.8 Mg/Ml Soln 1 Drop LEFT EYE BID Bumetanide 0.5 Mg Tab 0.5 Mg PO DAILY Brimonidine Opth Drops (Brimonidine Tartrate) 0.2% Soln 1 Drop LEFT EYE BID Review of Systems Except as stated in HPI: all other systems reviewed are Neg General / Constitutional: Positive: Fever Cardiovascular: No: Chest Pain or Discomfort Physical Exam Narrative GENERAL: 86 yo F, WNWD, moderate distress 2/2 pain and/or anxiety SKIN: Warm and dry. HEAD: Atraumatic. Normocephalic. EYES: Pupils equal and round. No scleral icterus. No injection or drainage. ENT: No nasal bleeding or discharge. Mucous membranes pink and moist. NECK: Trachea midline. No JVD. CARDIOVASCULAR: Regular rate and rhythm. RESPIRATORY: No accessory muscle use. Clear to auscultation. Breath sounds equal bilaterally. GASTROINTESTINAL: Abdomen soft, non-tender, nondistended. Hepatic and splenic margins not palpable. MUSCULOSKELETAL: Extremities without clubbing, cyanosis, or edema. No obvious deformities. NEUROLOGICAL: Awake and alert. No obvious cranial nerve deficits. Motor grossly within normal limits. Five out of 5 muscle strength in the arms and legs. Normal speech. PSYCHIATRIC: Appropriate mood and affect; insight and judgment normal. Data Data Last Documented VS Vital Signs Date Time Temp Pulse Resp B/P (MAP) Pulse Ox O2 Delivery O2 Flow Rate FiO2 04/26/17 16:29 70 16 113/58 (76) 97 04/26/17 15:29 Room Air 04/26/17 13:09 98.0 VS reviewed Orders Orders Complete Blood Count With Diff (04/26/17 13:26) Comprehensive Metabolic Panel (04/26/17 13:26) Lipase (04/26/17 13:26) Urinalysis - C+S If Indicated (04/26/17 13:26) Iv Access Insert/Monitor (04/26/17 13:26) Ecg Monitoring (04/26/17 13:26) Oximetry (04/26/17 13:26) Ondansetron Inj (Zofran Inj) (04/26/17 13:30) Sodium Chloride 0.9% Flush (Ns Flush) (04/26/17 13:30) Acetaminophen (Tylenol) (04/26/17 15:30) Sodium Chlor 0.9% 1000 Ml Inj (Ns 1000 M (04/26/17 15:16) Ed Discharge Order (04/26/17 15:26) Labs Laboratory Tests Test 04/26/17 13:40 04/26/17 14:45 White Blood Count 9.2 TH/MM3 Red Blood Count 3.43 MIL/MM3 Hemoglobin 11.4 GM/DL Hematocrit 34.5 % Mean Corpuscular Volume 100.4 FL Mean Corpuscular Hemoglobin 33.1 PG Mean Corpuscular Hemoglobin Concent 33.0 % Red Cell Distribution Width 13.0 % Platelet Count 366 TH/MM3 Mean Platelet Volume 8.1 FL Neutrophils (%) (Auto) 58.3 % Lymphocytes (%) (Auto) 17.0 % Monocytes (%) (Auto) 11.9 % Eosinophils (%) (Auto) 12.4 % Basophils (%) (Auto) 0.4 % Neutrophils # (Auto) 5.4 TH/MM3 Lymphocytes # (Auto) 1.6 TH/MM3 Monocytes # (Auto) 1.1 TH/MM3 Eosinophils # (Auto) 1.1 TH/MM3 Basophils # (Auto) 0.0 TH/MM3 CBC Comment DIFF FINAL Differential Comment Blood Urea Nitrogen 12 MG/DL Creatinine 0.63 MG/DL Random Glucose 106 MG/DL Total Protein 7.3 GM/DL Albumin 2.6 GM/DL Calcium Level 9.2 MG/DL Alkaline Phosphatase 89 U/L Aspartate Amino Transf (AST/SGOT) 25 U/L Alanine Aminotransferase (ALT/SGPT) 17 U/L Total Bilirubin 0.5 MG/DL Sodium Level 135 MEQ/L Potassium Level 4.4 MEQ/L Chloride Level 102 MEQ/L Carbon Dioxide Level 23.7 MEQ/L Anion Gap 9 MEQ/L Estimat Glomerular Filtration Rate 89 ML/MIN Lipase 144 U/L Urine Color YELLOW Urine Turbidity CLEAR Urine pH 7.0 Urine Specific [place] 1.015 Urine Protein NEG mg/dL Urine Glucose (UA) NEG mg/dL Urine Ketones NEG mg/dL Urine Occult Blood NEG Urine Nitrite NEG Urine Bilirubin NEG Urine Leukocyte Esterase TRACE Urine Squamous Epithelial Cells 0-5 /hpf Microscopic Urinalysis Comment CULT NOT INDICATED MDM Medical Decision Making Medical Screen Exam Complete: Yes Emergency Medical Condition: Yes Medical Record Reviewed: Yes Differential Diagnosis UTI, metabolic disarray, renal insufficiency Narrative Course Presentation c/w viral syndrome with rhinorrhea, cough, sore throat and cephalgia. Symptomatic control with scripts as below. Diagnosis Primary Impression: Cough Additional Impressions: Rhinorrhea Fever Qualified Codes: R50.9 - Fever, unspecified Referrals: Primary Care Physician call for appointment Med/Other Pt SpecificInfo: Prescription(s) given Scripts Benzonatate (Tessalon Perles) 100 Mg Cap 100 MG PO TID Y for COUGH for 7 Days, CAP 0 Refills Prov: Sin Hines MD 04/26/17 Cetirizine (Cetirizine) 10 Mg Tab 10 MG PO DAILY for Allergies for 7 Days, #7 TAB 0 Refills Prov: Sin Hines MD 04/26/17 Oseltamivir (Tamiflu) 75 Mg Cap 75 MG PO BID for Mgmt Viral Infection, #7 CAP 0 Refills Prov: Sin Hines MD 04/26/17 Disposition: 01 DISCHARGE HOME Condition: Stable Sin Hines MD Apr 26, 2017 13:37
[2017-04-26 13:45] VITALS: O2SAT 96
[2017-04-26 13:48] LABS: AUTOMATED NEUTROPHIL # 5.4 TH/MM3 (1.8-7.7); BASOPHIL % 0.4 % (0.0-2.0); EOSINOPHIL # 1.1 TH/MM3 (0-0.4); EOSINOPHIL % 12.4 % (0.0-4.0); HEMATOCRIT 34.5 % (35.0-46.0); HEMOGLOBIN 11.4 GM/DL (11.6-15.3); LYMPHOCYTE # 1.6 TH/MM3 (1.0-4.8); MEAN CELL VOLUME 100.4 FL (80.0-100.0); MEAN CORPUSCULAR HEMOGLOBIN 33.1 PG (27.0-34.0); MEAN PLATELET VOLUME 8.1 FL (7.0-11.0); MONO % 11.9 % (0.0-8.0); MONOCYTE # 1.1 TH/MM3 (0-0.9); NEUT % 58.3 % (16.0-70.0); PLATELET COUNT 366 TH/MM3 (150-450); RED BLOOD COUNT 3.43 MIL/MM3 (4.00-5.30); WHITE BLOOD COUNT 9.2 TH/MM3 (4.0-11.0)
[2017-04-26 13:59] LABS: CHLORIDE 102 MEQ/L (98-107); SODIUM (NA) 135 MEQ/L (136-145)
[2017-04-26 14:02] LABS: CALCIUM 9.2 MG/DL (8.5-10.1)
[2017-04-26 14:03] LABS: ALBUMIN 2.6 GM/DL (3.4-5.0); BICARBONATE 23.7 MEQ/L (21.0-32.0); BLOOD UREA NITROGEN 12 MG/DL (7-18); GLUCOSE,RANDOM 106 MG/DL (74-106); LIPASE 144 U/L (73-393)
[2017-04-26 14:06] LABS: ALT (GPT) 17 U/L (10-53); AST (GOT) 25 U/L (15-37); CREATININE 0.63 MG/DL (0.50-1.00); GLOMERULAR FILTRATION RATE 89 ML/MIN (>89)
[2017-04-26 14:07] LABS: TOTAL BILIRUBIN ADULT 0.5 MG/DL (0.2-1.0); TOTAL PROTEIN 7.3 GM/DL (6.4-8.2)
[2017-04-26 14:09] LABS: ALKALINE PHOSPHATASE 89 U/L (45-117)
[2017-04-26 15:01] LABS: BILIRUBIN, URINE NEG (NEG); BLOOD, URINE NEG (NEG); GLUCOSE,URINE NEG (NEG); KETONE, URINE NEG (NEG); NITRITE,URINE NEG (NEG); URINE LEUKOCYTE ESTERASE TRACE (NEG)
[2017-04-26] MEDS ORDERED: SODIUM CHLOR 0.9% 1000 ML INJ 1,000 ML IV ONE (15:16)
[2017-04-26 15:18] LABS: SQUAMOUS EPITHELIAL CELL URINE 0-5 /hpf (0-5); URINE COLOR YELLOW (YELLW/STRAW)
[2017-04-26] MEDS ORDERED: OSEL75 PO (15:24)
[2017-04-26] MEDS ORDERED: BENZ100 PO (15:24)
[2017-04-26] MEDS ORDERED: CETI10 PO (15:24)
[2017-04-26 15:28] VITALS: BP 113/52; PULSE 72; RESP 16
[2017-04-26] MEDS ORDERED: ACETAMINOPHEN 325 MG TAB PO ONE (15:30)
[2017-04-26 16:15] VITALS: RESP 16
[2017-04-26 16:29] VITALS: BP 113/58
== END 2017-04-26 16:31 | disposition home or self-care (01) ==
LOC: PHED 13:05
DX: R05 Cough (principal); J34.89 Other specified disorders of nose and nasal sinuses; R50.9 Fever, unspecified; R51 Headache; J02.9 Acute pharyngitis, unspecified; J45.909 Unspecified asthma, uncomplicated; I48.91 Unspecified atrial fibrillation; E78.00 Pure hypercholesterolemia, unspecified; M10.9 Gout, unspecified
CPT/HCPCS: 80053; 81001; 83690; 85025; 96361; 96374; 99284; J2405; J7030

== ENCOUNTER 2017-04-29 10:01 | Emergency (ER) | payer OTHER ==
[~2017-04-29] VITALS: Ht 154.9 cm; Wt 62.0 kg
[~2017-04-29 10:01] MED LIST changes: +BENZ100 PO; -CEFU1TAB20 PO; -CEPH250C PO; +CETI10 PO; -NAPHSOL EACH EYE; +OSEL75 PO
[2017-04-29 10:15] VITALS: BP 138/77; PULSE 97; RESP 16; TEMP 98.8; O2SAT 96
[2017-04-29] MEDS ORDERED: AZIT250T3 PO (10:39)
[2017-04-29] MEDS ORDERED: ONDANSETRON ODT 4 MG TAB PO ONE (10:45)
--- NOTE | 2017-04-29 10:45 | PD ---
HPI Chief Complaint: Respiratory Symptoms Time Seen by Provider: 10:34 Travel History International Travel<30 days: No Contact w/Intl Traveler<30days: No Traveled to known affect area: No History of Present Illness HPI Patient presents with complaints of generalized weakness mild nausea and a fever last night. Occasional cough. Denies vomiting or loose stools. She was evaluated in the emergency room 3 days ago and diagnosed with viral syndrome cough, rhinorrhea and fever. Prescribed Tessalon Perles Ceftrizine and Tamiflu which the patient did not start secondary to cost. Followed by Dr. Bhatt for atrial fibrillation pancreatic calcifications and hypertension. Compliant with diltiazem and Eliquis. Started on a Z-Michael. Accompanied by friend who recommended a chest x-ray. PFSH Past Medical History Hx Anticoagulant Therapy: Yes Asthma: Yes ( CHILD) Atrial Fibrillation: Yes Heart Rhythm Problems: Yes (A. FIB) Cancer: No Cardiovascular Problems: Yes (htn on meds) High Cholesterol: Yes Congestive Heart Failure: No COPD: No Diminished Hearing: No Diverticulitis: Yes Endocrine: No Gastrointestinal Disorders: Yes (HX PANCREATITIS 1989) Gout: Yes Genitourinary: Yes (BLADDER INFECTION, UTIs) Hiatal Hernia: Yes Hypertension: Yes Implanted Vascular Access Dvce: Yes Neurologic: No Psychiatric: No Respiratory: Yes Immunizations Current: No Pancreatitis: Yes ?: Not Menopausal: Yes : 3 Para: 2 Miscarriage: 1 Past Surgical History Abdominal Surgery: Yes (DIVERTICULITIS; CHOLECYSTECTOMY) Body Medical Devices: knee replacement bilateral Cholecystectomy: Yes Genitourinary Surgery: Yes ([facility] ) Gynecologic Surgery: Yes ([facility]) Hysterectomy: Yes Joint Replacement: Yes (bilat KNEE) Tonsillectomy: Yes Other Surgery: Yes (LEFT LOWER LEG SKIN GRAFT 2015) Social History Alcohol Use: No Tobacco Use: No Substance Use: No Allergies-Medications (Allergen,Severity, Reaction): Coded Allergies: Beef Containing Products (Verified Allergy, Severe, 04/29/17) grass pollen (Verified Allergy, Severe, 04/29/17) milk (Verified Allergy, Severe, PT DENIES, 04/29/17) mold (Verified Allergy, Severe, 04/29/17) morphine (Verified Allergy, Severe, CAN NOT TAKE HX PANCREATITIS, 04/29/17) pesticide (Verified Allergy, Severe, 04/29/17) Reported Meds & Prescriptions Reported Meds & Active Scripts Active Cetirizine (Cetirizine HCl) 10 Mg Tab 10 Mg PO DAILY 7 Days Reported Azithromycin 250 Mg Tab 250 Mg PO DIRECTED Take 2 tabs (500 mg) on day 1 then 1 tab daily x 4 days. Eliquis (Apixaban) 2.5 Mg Tab 2.5 Mg PO BID Potassium Chloride ER (Potassium Chloride) 10 Meq Cap 10 Meq PO DAILY Pred Forte Opth 1% (Prednisolone Acetate Opth 1%) 1% Susp 1 Drop EACH EYE BID Losartan (Losartan Potassium) 25 Mg Tab 25 Mg PO DAILY Diltiazem HCl ER (Diltiazem HCl Coated Beads) 300 Mg Cap 300 Mg PO DAILY Digoxin 0.125 Mg Tab 0.125 Mg PO HS Cosopt Opth Drops (Dorzolamide-Timolol Opth Drops) 22.3-6.8 Mg/Ml Soln 1 Drop LEFT EYE BID Bumetanide 0.5 Mg Tab 0.5 Mg PO DAILY Brimonidine Opth Drops (Brimonidine Tartrate) 0.2% Soln 1 Drop LEFT EYE BID Review of Systems General / Constitutional: Positive: Fever (weakness), Other (weakness) Eyes: No: Visual changes HENT: No: Headaches Cardiovascular: No: Chest Pain or Discomfort Respiratory: No: Shortness of Breath Gastrointestinal: Positive: Nausea, No: Abdominal Pain Genitourinary: No: Dysuria Musculoskeletal: No: Pain Skin: No Rash Neurologic: No: Weakness Psychiatric: No: Depression Endocrine: No: Polydipsia Hematologic/Lymphatic: No: Easy Bruising Physical Exam Narrative GENERAL: Well-nourished, well-developed patient. SKIN: Focused skin assessment warm/dry. HEAD: Normocephalic. EYES: No scleral icterus. No injection or drainage. NECK: Supple, trachea midline. No JVD or lymphadenopathy. CARDIOVASCULAR: irregular rate and rhythm without murmurs, gallops, or rubs. RESPIRATORY: Breath sounds equal bilaterally. No accessory muscle use. GASTROINTESTINAL: Abdomen soft, non-tender, nondistended. MUSCULOSKELETAL: No cyanosis, or edema. BACK: Nontender without obvious deformity. No CVA tenderness. Data Data Last Documented VS Vital Signs Date Time Temp Pulse Resp B/P (MAP) Pulse Ox O2 Delivery O2 Flow Rate FiO2 04/29/17 11:42 93 16 140/81 (100) 95 Room Air 04/29/17 10:15 98.8 Orders Orders Complete Blood Count With Diff (04/29/17 10:37) Chest, Single Ap (04/29/17 ) Urinalysis - C+S If Indicated (04/29/17 10:37) Influenzae A/B Antigen (04/29/17 10:37) Ondansetron Odt (Zofran Odt) (04/29/17 10:45) Blood Culture (04/29/17 12:46) Labs Laboratory Tests Test 04/29/17 10:55 04/29/17 11:05 White Blood Count 11.1 TH/MM3 Red Blood Count 3.28 MIL/MM3 Hemoglobin 10.7 GM/DL Hematocrit 32.5 % Mean Corpuscular Volume 99.1 FL Mean Corpuscular Hemoglobin 32.5 PG Mean Corpuscular Hemoglobin Concent 32.8 % Red Cell Distribution Width 13.0 % Platelet Count 376 TH/MM3 Mean Platelet Volume 8.3 FL Neutrophils (%) (Auto) 76.5 % Lymphocytes (%) (Auto) 11.0 % Monocytes (%) (Auto) 8.3 % Eosinophils (%) (Auto) 3.7 % Basophils (%) (Auto) 0.5 % Neutrophils # (Auto) 8.5 TH/MM3 Lymphocytes # (Auto) 1.2 TH/MM3 Monocytes # (Auto) 0.9 TH/MM3 Eosinophils # (Auto) 0.4 TH/MM3 Basophils # (Auto) 0.1 TH/MM3 CBC Comment DIFF FINAL Differential Comment Urine Collection Type CLEAN CATCH Urine Color YELLOW Urine Turbidity CLEAR Urine pH 6.5 Urine Specific [place] 1.014 Urine Protein 30 mg/dL Urine Glucose (UA) NEG mg/dL Urine Ketones 15 mg/dL Urine Occult Blood NEG Urine Nitrite NEG Urine Bilirubin NEG Urine Leukocyte Esterase NEG Urine RBC 0-3 /hpf Urine WBC 0-2 /hpf Urine Squamous Epithelial Cells 0-5 /hpf Urine Amorphous Sediment FEW Microscopic Urinalysis Comment CULT NOT INDICATED Urine Collection Time 1105 MDM Medical Decision Making Medical Screen Exam Complete: Yes Emergency Medical Condition: Yes Medical Record Reviewed: Yes Differential Diagnosis Viral syndrome, fever and unknown origin, pneumonia, cough, failure to thrive Narrative Course Assessment and plan discussed with patient at bedside. Friend again came out to the physician station with suggestions of blood cultures nasal aspirate and chest x-ray. CBC revealed a mildly elevated white count. Last 72 hours Impressions Chest X-Ray 04/29/17 0000 Signed Impressions: Service Date/Time: Saturday, April 29, 2017 11:22 - CONCLUSION: 1. Marked cardiomegaly. 2. Diffuse increase interstitial markings consistent with acute or chronic interstitial disease. Clinical correlation is recommended. Edison Weber MD Diagnosis Primary Impression: Generalized weakness Additional Impressions: Cough Fever Qualified Codes: R50.9 - Fever, unspecified Patient Instructions: General Instructions Additional Instructions: Encouraged rest fluids and Motrin. Follow-up with PCP. Return to emergency with any onset of new symptoms. Patient started on prophylactic antibiotic. Patient has 3x250 mg tablets of Zithromax at home. Recommended to not start Tamiflu since symptoms are present greater than 3 days. Encourage frequent handwashing. Continue [id number] cough medication. Med/Other Pt SpecificInfo: Prescription(s) given Scripts Azithromycin (Zithromax) 250 Mg Tab 500 MG PO DAILY for Infection, #13 TAB 0 Refills Prov: Ayan Jacobs MD 04/29/17 Disposition: 01 DISCHARGE HOME Condition: Good Ayan Jacobs MD Apr 29, 2017 10:45
[2017-04-29 11:03] VITALS: BP 114/75; PULSE 87; RESP 16; O2SAT 94
[2017-04-29 11:17] LABS: AUTOMATED NEUTROPHIL # 8.5 TH/MM3 (1.8-7.7); BASOPHIL # 0.1 TH/MM3 (0-0.2); BASOPHIL % 0.5 % (0.0-2.0); EOSINOPHIL # 0.4 TH/MM3 (0-0.4); EOSINOPHIL % 3.7 % (0.0-4.0); HEMATOCRIT 32.5 % (35.0-46.0); HEMOGLOBIN 10.7 GM/DL (11.6-15.3); LYMPHOCYTE # 1.2 TH/MM3 (1.0-4.8); MEAN CELL VOLUME 99.1 FL (80.0-100.0); MEAN CORPUSCULAR HEMOGLOBIN 32.5 PG (27.0-34.0); MEAN CORPUSCULAR HGB CONC 32.8 % (32.0-36.0); MEAN PLATELET VOLUME 8.3 FL (7.0-11.0); MONO % 8.3 % (0.0-8.0); MONOCYTE # 0.9 TH/MM3 (0-0.9); NEUT % 76.5 % (16.0-70.0); PLATELET COUNT 376 TH/MM3 (150-450); RED BLOOD COUNT 3.28 MIL/MM3 (4.00-5.30); WHITE BLOOD COUNT 11.1 TH/MM3 (4.0-11.0)
[2017-04-29 11:21] LABS: BILIRUBIN, URINE NEG (NEG); BLOOD, URINE NEG (NEG); GLUCOSE,URINE NEG (NEG); KETONE, URINE 15 mg/dL (NEG); NITRITE,URINE NEG (NEG); PH, URINE 6.5 (5.0-8.5); URINE LEUKOCYTE ESTERASE NEG (NEG)
[2017-04-29 11:22] LABS: URINE COLOR YELLOW (YELLW/STRAW)
[2017-04-29 11:29] LABS: AMORPHOUS SEDIMENT, URINE FEW; RBC, URINE 0-3 /hpf (0-3); SQUAMOUS EPITHELIAL CELL URINE 0-5 /hpf (0-5); WBC, URINE 0-2 /hpf (0-5)
[2017-04-29 11:42] VITALS: BP 140/81; PULSE 93; RESP 16; O2SAT 95
--- NOTE | 2017-04-29 12:27 | RADRPT ---
EXAM DATE/TIME: 04/29/2017 11:22 [facility] COMPARISON: SPINE LUMBAR LTD (AP & LAT), December 17, 2015, 3:28. CHEST SINGLE AP, May 23, 2015, 18:28. INDICATIONS : Cough. Short of breath. MEDICAL HISTORY : Rheumatoid arthritis. Pancreatitis. Diverticulitis. Hypertension SURGICAL HISTORY : None. ENCOUNTER: Initial ACUITY: 2 weeks PAIN SCORE: 0/10 LOCATION: Bilateral chest FINDINGS: The heart is markedly enlarged. Diffuse increased interstitial markings are noted consistent with acu te or chronic interstitial disease. No focal alveolar consolidation is noted. Degenerative changes ar e noted throughout the thoracic spine. CONCLUSION: 1. Marked cardiomegaly. 2. Diffuse increase interstitial markings consistent with acute or chronic interstitial disease. Clin ical correlation is recommended. Edison Weber MD on April 29, 2017 at 12:23 Board Certified Radiologist. This report was verified electronically.
[2017-04-29 12:45] VITALS: BP 128/79; PULSE 83; RESP 16; O2SAT 95
[2017-04-29] MEDS ORDERED: ZITH250T PO (13:24)
[2017-04-29 13:45] VITALS: BP 133/76; PULSE 92; RESP 16; O2SAT 94
== END 2017-04-29 14:09 | disposition home or self-care (01) ==
LOC: PHED 10:01
DX: R53.1 Weakness (principal); R05 Cough; R50.9 Fever, unspecified; I10 Essential (primary) hypertension; E78.00 Pure hypercholesterolemia, unspecified; I48.91 Unspecified atrial fibrillation; M10.9 Gout, unspecified
CPT/HCPCS: 71045; 81001; 85025; 87040; 87804; 99284